=== PATIENT | male | born 1955 | race Caucasian/White ===

== ENCOUNTER 2016-11-25 00:30 | Inpatient (IN) | payer OTHER ==
[2016-11-25 02:31] LABS: MEAN CELL VOLUME 79.4 fL (80.0-94.0); MEAN PLATELET VOLUME 8.1 fL (7.2-11.7); MONO # 0.8 K/uL (0.0-0.8)
[2016-11-25 02:33] LABS: BASO % 0.3 % (0.0-2.0); HEMATOCRIT 34.3 % (35.0-51.0); LYMPH # 0.9 K/uL (1.0-4.3); MEAN CORPUSCULAR HGB CONC 31.5 g/dL (33.0-37.0); MONO % 5.7 % (0.0-10.0); PLATELET COUNT 220 K/uL (130-400); WHITE BLOOD COUNT 14.1 K/uL (4.8-10.8)
[2016-11-25] MEDS ORDERED: Sodium Chloride 0.9% 500 ML IV ONE ×2 (02:40→02:42)
[2016-11-25 02:45] LABS: RBC URINE < 1 /hpf (0-3); URINE BILIRUBIN NEGATIVE (NEGATIVE); URINE COLOR Yellow (YELLOW); URINE GLUCOSE (UA) NORMAL (Normal); URINE KETONE NEGATIVE (NEGATIVE); URINE LEUKOCYTE ESTERASE NEG Leu/uL (Negative); URINE PROTEIN 1+ mg/dL (NEGATIVE); URINE UROBILINOGEN NORMAL mg/dL (0.2-1.0); WBC URINE 5 /hpf (0-5)
[2016-11-25 02:45] LABS: POTASSIUM 3.6 mmol/L (3.6-5.2)
[2016-11-25 02:46] LABS: INR 1.3
[2016-11-25 02:47] LABS: ALB/GLOB RATIO 0.9 (1.0-2.1); BILIRUBIN,TOTAL 1.3 mg/dL (0.2-1.3); TOTAL PROTEIN 8.2 g/dL (6.3-8.3)
[2016-11-25 02:48] LABS: URINE BLOOD TRACE (NEGATIVE)
[2016-11-25 02:48] LABS: CALCIUM 8.3 mg/dl (8.6-10.4)
[2016-11-25 02:54] LABS: VENOUS BLOOD GAS BASE EXCESS 5.5 mmol/L (0.0-2.0); VENOUS BLOOD GAS PCO2 51 mmHg (40-60)
[2016-11-25 03:21] LABS: NEUTROPHIL 84 % (50-75); TOTAL CELLS COUNTED 100
[2016-11-25 03:22] LABS: LARGE PLATELETS PRESENT
[2016-11-25] MEDS ORDERED: Sodium Chloride 0.9% 1,000 ML IV ONE ×2 (03:52→06:38)
[2016-11-25] MEDS ORDERED: cefTRIAXone IV 1 gm in Dextros 50 ML IVPB STA (04:16)
[2016-11-25] MEDS ORDERED: cefTRIAXone IV 1 gm in Dextros 50 ML IVPB ONE (04:20)
--- NOTE | 2016-11-25 04:27 | C.PDOC ---
Time Seen by Provider: 11/25/16 02:45 Chief Complaint (Nursing): Fever History Per: Patient, EMS Onset/Duration Of Symptoms: Hrs Current Symptoms Are (Timing): Still Present Associated Symptoms: Fever, Other (Generalized weakness) Severity: Moderate Recent travel outside of the [place]: No Additional History Per: Prior Records Past Medical History Reviewed: Historical Data, Nursing Documentation, Vital Signs Vital Signs: Last Vital Signs Temp 101.7 F H 11/25/16 04:10 Pulse 83 11/25/16 04:10 Resp 20 11/25/16 04:10 BP 94/40 L 11/25/16 04:10 Pulse Ox 98 11/25/16 04:10 - Medical History PMH: Diabetes Family History: States: Unknown Family Hx - Social History Hx Alcohol Use: No Hx Substance Use: No - Immunization History Hx Tetanus Toxoid Vaccination: No Hx Influenza Vaccination: No Hx Pneumococcal Vaccination: No Review Of Systems Except As Marked, All Systems Reviewed And Found Negative. Constitutional: Positive for: Fever, Malaise ENT: Negative for: Nose Congestion, Throat Pain Cardiovascular: Negative for: Chest Pain Respiratory: Negative for: Cough, Shortness of Breath Gastrointestinal: Negative for: Vomiting, Abdominal Pain, Diarrhea Genitourinary: Negative for: Dysuria Musculoskeletal: Negative for: Neck Pain, Back Pain Skin: Positive for: Rash Neurological: Negative for: Weakness, Numbness, Seizures, Altered Mental Status , Headache Physical Exam - Physical Exam Appears: No Acute Distress, Chronically Ill Skin: Warm, Dry, Rash (on b/l legs) Head: Atraumatic, Normacephalic Eye(s): bilateral: PERRL, EOMI Neck: Normal ROM, Supple Cardiovascular: Rhythm Regular Respiratory: Normal Breath Sounds, No Accessory Muscle Use Gastrointestinal/Abdominal: Soft, No Tenderness Male Genital: No Testicular Tenderness, Scrotal Swelling (due to hernia?, pt states it is not bothering him and has been like this for years) Extremity: Normal ROM, Pedal Edema Neurological/Psych: Oriented x3, Normal Motor, Normal Sensation ED Course And Treatment - Laboratory Results Result Diagrams: 11/25/16 02:28 11/25/16 02:28 Lab Interpretation: Abnormal Interpretation Of Abnormal: Leukocytosis. Renal insufficiency. O2 Sat by Pulse Oximetry: 98 Pulse Ox Interpretation: Normal - Radiology CXR: Interpreted by Me, Viewed By Me CXR Interpretation: Yes: No Acute Disease Progress - Interventions Interventions:: Observation, Intravenous fluid, Oxygen - Medications Administered Oral: Acetaminophen Intravenous: Other (Abx) - Data Reviewed Data Reviewed: Lab, Diagnostic imaging, Old records - Patient Status Patient status: Partially improved - Continuity of Care Discussed patient case with:: Patient, ED Nurse, On-call PMD-pt unassigned - Patient Plan Patient Plan: Admission Disposition Discussed With : Cailin Olivares Comment: He accepted pt on hospitalist service. Doctor Will See Patient In The: Hospital Counseled Patient/Family Regarding: Studies Performed, Diagnosis - Disposition Disposition: HOSPITALIZED Disposition Time: 04:29 Condition: FAIR - Clinical Impression Clinical Impression: Fever, Bilateral cellulitis of lower leg
[2016-11-25] MEDS ORDERED: DiphenhydrAMINE 50 mg/ml Inj IVP STA (04:39)
[2016-11-25] MEDS ORDERED: DiphenhydrAMINE 50 mg/ml Inj ONE (04:40)
--- NOTE | 2016-11-25 04:48 | CP.PCM.HP ---
History of Present Illness - History of Present Illness History of Present Illness: CC: fever + b/l leg swelling/warmth HPI: 60 year old Male with PMHx LE cellulites, LE swelling (x1yr), DM - presents c/o fever + b/l leg swelling/warmth for the past 1.5 weeks. Patient reports this is his second episode of b/l cellulites due to severe LE swelling ( resulting in open wounds), over the past year. He states that last week, the swelling in his b/l extremities got so sever, that 2 wounds opened on each leg, draining clear fluid daily. Shortly after, the legs became more warm, red, and tender. He admits to visiting a clinic in [facility], where his PMD Dr. Renner wrapped the b/l legs to help control the swelling. Admits to fever, weakness, n/v, urinary frequency (1x per hour), LE swelling, leg pain at site of open wounds. Denies chills, diaphoresis, H/A, dizziness, chest pain, SOB, orthopnea, abdominal pain, nausea, d/c, dysuria, back pain, or any additional acute complaints. ED course: Tylenol 975; Motrin 600; NS 2L; Vanco 1Gm IVPB; Rocephin 1Gm IVPB PMHx: LE cellulites, LE swelling (x1yr), DM, Arthritis, Inguinal Hernia (x30 years) PSHx: denies Meds: Novolin 70/30 15u daily; Diclofenac BID Allergies: ciprofloxacin, Flagyl (itchy, SOB, feels like throat is closing) FamHx: unknown SocHx: homeless sleeping on streets x1yr. 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 PMD: Dr. Renner ([facility] clinic) Present on Admission - Present on Admission Any Indicators Present on Admission: No Review of Systems - Constitutional Constitutional: Fever, Weakness. absent: Chills - EENT Eyes: absent: Blind Spots, Blurred Vision, Change in Vision Ears: absent: Decreased Hearing, Ear Discharge, Ear Pain Nose/Mouth/Throat: absent: Nasal Congestion, Nasal Discharge - Cardiovascular Cardiovascular: Leg Edema. absent: Chest Pain, Dyspnea - Respiratory Respiratory: absent: Cough, Dyspnea, Hemoptysis - Gastrointestinal Gastrointestinal: Vomiting (yesterday). absent: Abdominal Pain, Belching, Bloating, Nausea - Genitourinary Genitourinary: Urinary Frequency - Musculoskeletal Musculoskeletal: Other (b/l leg pain at wound sites, ). absent: Numbness, Tingling - Integumentary Integumentary: Skin Ulcer, Swelling - Neurological Neurological: Weakness. absent: Dizziness, Numbness, Headaches - Psychiatric Psychiatric: absent: Anhedonia, Anxiety, Depression - Hematologic/Lymphatic Hematologic: absent: Easy Bleeding, Easy Bruising, Lymphadenopathy Past Patient History - Past Social History Smoking Status: Never Smoked - PSYCHIATRIC Hx Substance Use: No Meds Allergies/Adverse Reactions: Allergies Allergy/AdvReac Type Severity Reaction Status Date / Time ciprofloxacin [From Cipro] Allergy Verified 11/25/16 00:57 ciprofloxacin HCl Allergy Verified 11/25/16 00:57 [From Cipro] Physical Exam - Constitutional Appears: Toxic, No Acute Distress, Chronically Ill - Head Exam Head Exam: ATRAUMATIC, NORMAL INSPECTION - Eye Exam Eye Exam: EOMI Pupil Exam: NORMAL ACCOMODATION - ENT Exam ENT Exam: Mucous Membranes Moist - Respiratory Exam Respiratory Exam: Clear to Auscultation Bilateral, NORMAL BREATHING PATTERN. absent: Wheezes - Cardiovascular Exam Cardiovascular Exam: Tachycardia, +S1, +S2 - GI/Abdominal Exam GI & Abdominal Exam: Normal Bowel Sounds, Soft. absent: Tenderness - Extremities Exam Extremities exam: Positive for: pedal edema, tenderness, pedal pulses present. Negative for: normal inspection - Back Exam Back exam: NORMAL INSPECTION - Neurological Exam Neurological exam: Alert, CN II-XII Intact, Oriented x3 - Psychiatric Exam Psychiatric exam: Flat Affect, Normal Mood - Skin Skin Exam: Dry, Normal Color, Warm Additional comments: b/l legs warm, erythematous, open wounds present. Results - Vital Signs Recent Vital Signs: Last Vital Signs Temp 101.7 F H 11/25/16 04:10 Pulse 83 11/25/16 04:10 Resp 20 11/25/16 04:10 BP 94/40 L 11/25/16 04:10 Pulse Ox 98 11/25/16 04:30 - Labs Result Diagrams: 11/25/16 02:28 11/25/16 02:28 Labs: Laboratory Results - last 24 hr 11/25/16 11/25/16 11/25/16 02:22 02:28 02:49 WBC 14.1 H RBC 4.32 L Hgb 10.8 L Hct 34.3 L MCV 79.4 L MCH 25.0 L MCHC 31.5 L RDW 16.0 H Plt Count 220 MPV 8.1 Neut % (Auto) 88.0 H Lymph % (Auto) 6.0 L [place] % (Auto) 5.7 Eos % (Auto) 0.0 Baso % (Auto) 0.3 Neut # 12.4 H Lymph # 0.9 L [place] # 0.8 Eos # 0.0 Baso # 0.0 Neutrophils % (Manual) 84 H Band Neutrophils % 2 Lymphocytes % (Manual) 8 L Monocytes % (Manual) 6 Basophils % (Manual) TEST NOT PERFORMED Platelet Estimate Normal Large Platelets Present Poikilocytosis (manual Slight Anisocytosis (manual) Slight PT 14.8 H INR 1.3 APTT 27 pO2 18 L VBG pH 7.40 VBG pCO2 51 VBG HCO3 27.3 VBG Total CO2 33.2 H VBG O2 Sat (Calc) 24.0 L VBG Base Excess 5.5 H VBG Potassium 3.6 Glucose 140 H Lactate 1.4 Sodium 139 139.0 Potassium 3.6 Chloride 98 105.0 Carbon Dioxide 27 Anion Gap 17 BUN 26 H Creatinine 1.8 H Est GFR ( Amer) 47 Est GFR (Non-Af Amer) 39 Random Glucose 131 H Calcium 8.3 L Total Bilirubin 1.3 AST 48 ALT 32 Alkaline Phosphatase 61 Total Protein 8.2 Albumin 3.8 Globulin 4.4 H Albumin/Globulin Ratio 0.9 L Venous Blood Potassium 3.6 Urine Color Yellow Urine Clarity Clear Urine pH 5.0 Ur Specific [place] 1.011 Urine Protein 1+ H Urine Glucose (UA) Normal Urine Ketones Negative Urine Blood Trace H Urine Nitrate Negative Urine Bilirubin Negative Urine Urobilinogen Normal Ur Leukocyte Esterase Neg Urine WBC (Auto) 5 Urine RBC (Auto) < 1 Ur Squamous Epith Cells < 1 Influenza Typ A,B (EIA) 11/25/16 02:50 WBC RBC Hgb Hct MCV MCH MCHC RDW Plt Count MPV Neut % (Auto) Lymph % (Auto) [place] % (Auto) Eos % (Auto) Baso % (Auto) Neut # Lymph # [place] # Eos # Baso # Neutrophils % (Manual) Band Neutrophils % Lymphocytes % (Manual) Monocytes % (Manual) Basophils % (Manual) Platelet Estimate Large Platelets Poikilocytosis (manual Anisocytosis (manual) PT INR APTT pO2 VBG pH VBG pCO2 VBG HCO3 VBG Total CO2 VBG O2 Sat (Calc) VBG Base Excess VBG Potassium Glucose Lactate Sodium Potassium Chloride Carbon Dioxide Anion Gap BUN Creatinine Est GFR ( Amer) Est GFR (Non-Af Amer) Random Glucose Calcium Total Bilirubin AST ALT Alkaline Phosphatase Total Protein Albumin Globulin Albumin/Globulin Ratio Venous Blood Potassium Urine Color Urine Clarity Urine pH Ur Specific [place] Urine Protein Urine Glucose (UA) Urine Ketones Urine Blood Urine Nitrate Urine Bilirubin Urine Urobilinogen Ur Leukocyte Esterase Urine WBC (Auto) Urine RBC (Auto) Ur Squamous Epith Cells Influenza Typ A,B (EIA) Negative for flu a/b Assessment & Plan - Assessment and Plan (Free Text) Assessment: Bilateral cellulitis of lower extremities - chronic redness/swelling in b/l legs (x1yrs) - likely b/l swelling due to venous insufficiency - possible bacteremia due to open wounds Leukocytosis - WBC 14k Fever, T104.7 -> 101.7 NS0.9 at 100cc/hr Tylenol 650mg PO Q6 PRN Ceftriaxone 1Gm IVPB daily Vancomycin 1Gm IVPB qDaily f/u Blood Culture f/u am labs Leukocytosis WBC 14k influenza a/b negative UA negative Diabetes ISS low dose Novlolin 70/30 8u SC BIDAC f/u A1c Renal Insufficiency BUN 26 / Cr 1.8 on admission NS0.9 at 100cc/hr Avoid home med - Diclofenac monitor Inguinal hernia - severe scrotal swelling, non-tender, non-reducible - f/u CT chest/abd/pelvis Sleep Apnea recommend outpatient sleep apnea testing -pt homeless, but possibly his [facility] clinic can refer him Hypotension BP 94/40 on admission NS 0.9 at 100cc/hr Electrolyte Imbalance Hypokalemia, K3.6 - Kdur 20 monitor Prophylaxis Contraindication to SCDs (LE edema) Pepcid 20mg PO daily Heparin SC Q8 Heart healthy diet, low sodium, carb consistent, Renal (non dialysis) - Date & Time Date: 11/25/16 Time: 04:45
[2016-11-25] MEDS ORDERED: Bacitracin 500 Units/gm Oint Foilpak UD ONE (04:53)
[2016-11-25] MEDS: (Novolog) Insulin Aspart, Recombinant 100 u/ml 10 ml vial SC SCH ×4 (07:50→21:09)
[2016-11-25] MEDS: (Novolin 70/30) NPH/Regular 70/30 Units/ml 10 ml vial SC SCH ×2 (07:50→17:30)
[2016-11-25] MEDS: Sodium Chloride 0.9% 1,000 ML IV SCH ×3 (09:51→21:25)
[2016-11-25] MEDS: Potassium Chloride 20 mEq ER Tab PO SCH (09:57)
[2016-11-25 11:56] LABS: BASO # 0.1 K/uL (0.0-0.2); BASO % 0.4 % (0.0-2.0); EOS % 0.1 % (0.0-4.0); HEMATOCRIT 31.3 % (35.0-51.0); LYMPH # 0.7 K/uL (1.0-4.3); LYMPH % 4.5 % (20.0-40.0); MEAN CELL VOLUME 79.4 fL (80.0-94.0); MEAN CORPUSCULAR HGB CONC 31.4 g/dL (33.0-37.0); MONO # 0.9 K/uL (0.0-0.8); MONO % 6.1 % (0.0-10.0); PLATELET COUNT 186 K/uL (130-400); RED CELL DISTRIBUTION WIDTH 15.9 % (11.5-14.5); WHITE BLOOD COUNT 14.4 K/uL (4.8-10.8)
--- NOTE | 2016-11-25 12:14 | CT ---
PROCEDURE: CT Chest, Abdomen and Pelvis without intravenous contrast HISTORY: Scrotal swelling, fever COMPARISON: None. TECHNIQUE: Radiation dose: Total exam DLP = 2157.19 mGy-cm. FINDINGS: CT CHEST WITHOUT CONTRAST: LUNGS: No consolidation. Several bilateral pulmonary nodules are noted. Calcified granuloma anterior right upper lobe, series 4, image 45. 5 mm noncalcified nodule right upper lobe, image 52. 6 mm ground-glass nodule apical posterior left upper lobe, subpleural, image 48. Subpleural 6 mm ground-glass nodule, left upper lobe, apical posterior, image 61. 5 mm subpleural nodule, left lower lobe, image 63. Given the presence of multiple ground-glass nodules, largest 6 mm, followup CT at 3-6 months is advised. MEDIASTINUM: Unremarkable. Normal caliber aorta and pulmonary arterial trunk. Normal size heart. LYMPH NODES: Unremarkable. PLEURA: Unremarkable. No pneumothorax. No pleural fluid. BONES: Unremarkable. OTHER FINDINGS: Mild bilateral gynecomastia. CT ABDOMEN AND PELVIS: LIVER: Normal size and contour. Diffusely diminished attenuation consistent with fatty infiltration. No mass. No biliary ductal dilatation. GALLBLADDER AND BILE DUCTS: Unremarkable. PANCREAS: Unremarkable. No gross lesion or ductal dilatation. SPLEEN: Splenomegaly. The spleen measures 17.8 cm in greatest dimension. No focal mass. ADRENALS: Unremarkable. No mass. KIDNEYS AND URETERS: No hydronephrosis. Punctate medullary calcifications bilaterally. No mass. VASCULATURE: Unremarkable. No aortic aneurysm. BOWEL: Right inguinal hernia containing a loop of small bowel. This does not appear obstructed though there is mild dilatation of the small bowel within the hernia sac. No other abnormal bowel loops are identified. APPENDIX: Not identified. No secondary findings to suggest acute appendicitis. PERITONEUM: No ascites. LYMPH NODES: Retroperitoneal and pelvic lymphadenopathy. Enlarged external iliac nodes up to 5 mm. Bilateral inguinal lymphadenopathy. Please note that there is stranding about the left pelvic and acts internal iliac and inguinal nodes suggestive of acute inflammation. Uncertain significance. BLADDER: Mild bilateral gynecomastia. Unremarkable. REPRODUCTIVE: Normal prostate BONES: No fracture. Grade 1 anterolisthesis at L4-5 without spondylolysis. OTHER FINDINGS: None. IMPRESSION: Multiple pulmonary nodules, some ground-glass. Largest ground-glass nodule 6 mm. Followup noncontrast chest CT 3 months is advised as per Fleischner society criteria. Mild bilateral gynecomastia. Splenomegaly. Right inguinal hernia containing nonobstructed loop of small bowel. Retroperitoneal, pelvic and inguinal lymphadenopathy. Left-sided external iliac and inguinal nodes appear acutely inflamed with surrounding stranding of the adjacent fat. Uncertain significance. Bilateral punctate medullary renal calcifications suggesting possible medullary sponge kidney. Please correlate. Diffuse fatty infiltration of the liver.
[2016-11-25 12:17] LABS: POTASSIUM 3.3 mmol/L (3.6-5.2)
[2016-11-25 12:18] LABS: CALCIUM 7.2 mg/dl (8.6-10.4)
[2016-11-25 12:19] LABS: ALB/GLOB RATIO 0.9 (1.0-2.1); BILIRUBIN,TOTAL 1.1 mg/dL (0.2-1.3); MAGNESIUM 1.8 mg/dL (1.6-2.3); TOTAL PROTEIN 6.9 g/dL (6.3-8.3)
[2016-11-25 12:31] LABS: NEUTROPHIL 77 % (50-75); TOTAL CELLS COUNTED 100
[2016-11-25 12:33] LABS: LARGE PLATELETS PRESENT
[2016-11-25 12:41] LABS: PHOSPHOROUS 3.7 mg/dL (2.5-4.5)
[2016-11-25 13:12] LABS: THYROID STIMULATING HORMONE 1.09 mIU/L (0.46-4.68)
--- NOTE | 2016-11-25 15:22 | RAD ---
HISTORY: pain COMPARISON: No prior. FINDINGS: LUNGS: No active pulmonary disease. PLEURA: No significant pleural effusion identified, no pneumothorax apparent. CARDIOVASCULAR: Normal. OSSEOUS STRUCTURES: No significant abnormalities. VISUALIZED UPPER ABDOMEN: Normal. OTHER FINDINGS: None. IMPRESSION: No active disease.
[2016-11-26] MEDS: Sodium Chloride 0.9% 1,000 ML IV SCH ×5 (05:36→23:46)
[2016-11-26] MEDS: (Novolog) Insulin Aspart, Recombinant 100 u/ml 10 ml vial SC SCH ×4 (07:33→21:04)
[2016-11-26] MEDS: (Novolin 70/30) NPH/Regular 70/30 Units/ml 10 ml vial SC SCH ×2 (08:19→16:26)
[2016-11-26] MEDS: Potassium Chloride 20 mEq ER Tab PO SCH (09:23)
[2016-11-26 10:39] LABS: BASO % 0.3 % (0.0-2.0); EOS # 0.1 K/uL (0.0-0.7); EOS % 1.2 % (0.0-4.0); HEMATOCRIT 31.1 % (35.0-51.0); LYMPH # 0.9 K/uL (1.0-4.3); LYMPH % 8.7 % (20.0-40.0); MEAN CELL VOLUME 79.5 fL (80.0-94.0); MEAN CORPUSCULAR HEMOGLOBIN 25.7 pg (27.0-31.0); MEAN CORPUSCULAR HGB CONC 32.3 g/dL (33.0-37.0); MONO # 0.7 K/uL (0.0-0.8); MONO % 7.1 % (0.0-10.0); PLATELET COUNT 168 K/uL (130-400); RED CELL DISTRIBUTION WIDTH 16.1 % (11.5-14.5)
[2016-11-26 10:48] LABS: POTASSIUM 3.2 mmol/L (3.6-5.2)
[2016-11-26 10:51] LABS: ALB/GLOB RATIO 0.9 (1.0-2.1); BILIRUBIN,TOTAL 0.7 mg/dL (0.2-1.3)
[2016-11-26 10:52] LABS: CALCIUM 7.5 mg/dl (8.6-10.4)
[2016-11-26 11:04] LABS: NEUTROPHIL 75 % (50-75); TOTAL CELLS COUNTED 100
[2016-11-26 11:05] LABS: LARGE PLATELETS PRESENT
[2016-11-26] MEDS ORDERED: Potassium Chloride 20 mEq ER Tab PO STA (11:28)
[2016-11-26 11:45] LABS: MAGNESIUM 2.1 mg/dL (1.6-2.3)
--- NOTE | 2016-11-26 14:16 | CP.PCM.PN ---
Subjective - Date & Time of Evaluation Date of Evaluation: 11/26/16 Time of Evaluation: 14:04 - Subjective Subjective: PGY-1 note for medicine service Pt seen and examined at bedside. Pt in good spirits today. He reports some discomfort in his b/l LE. Denies any fevers, chills, chest pain, sob, nausea or vomiting. Objective - Vital Signs/Intake and Output Vital Signs (last 24 hours): Temp Pulse Resp BP Pulse Ox 100.1 F H 87 20 130/71 94 L 11/26/16 07:58 11/26/16 08:00 11/26/16 07:58 11/26/16 07:58 11/26/16 07:58 Intake and Output: 11/26/16 11/26/16 06:59 18:59 Intake Total 1500 1320 Output Total 700 Balance 800 1320 - Medications Medications: Current Medications Acetaminophen (Tylenol 325mg Tab) 650 mg PO Q6 PRN PRN Reason: Fever >100.4 F Last Admin: 11/26/16 00:12 Dose: 650 mg Famotidine (Pepcid) 20 mg PO DAILY [facility] Last Admin: 11/26/16 09:23 Dose: 20 mg Heparin Sodium (Porcine) (Heparin) 5,000 units SC Q8 [facility] Last Admin: 11/26/16 13:55 Dose: 5,000 units Sodium Chloride (Sodium Chloride 0.9%) 1,000 mls @ 100 mls/hr IV .Q10H [facility] Last Admin: 11/26/16 13:48 Dose: Not Given Vancomycin HCl 1 gm/ Sodium (Chloride) 250 mls @ 166.7 mls/hr IVPB Q24H [facility] Last Admin: 11/26/16 05:34 Dose: 166.7 mls/hr Ceftriaxone Sodium 1 gm/ (Sodium Chloride) 100 mls @ 100 mls/hr IVPB Q24H [facility] Last Admin: 11/26/16 04:30 Dose: 100 mls/hr Insulin Aspart (Novolog) 0 unit SC ACHS [facility]ARAT PRN Reason: Protocol Last Admin: 11/26/16 12:06 Dose: Not Given Insulin Human Isoph/Insulin Regular (Novolin 70/30 (70/30 Units/Ml) 10 Ml) 8 units SC BIDAC [facility] Last Admin: 11/26/16 08:19 Dose: 8 units Potassium Chloride (K-Dur 20 Meq Er Tab) 20 meq PO DAILY [facility]ARAT Last Admin: 11/26/16 09:23 Dose: 20 meq - Labs Labs: 11/26/16 10:31 11/26/16 10:31 PT 14.8 SECONDS (9.7-12.2) H 11/25/16 02:28 INR 1.3 11/25/16 02:28 APTT 27 SECONDS (21-34) 11/25/16 02:28 - Constitutional Appears: Non-toxic, No Acute Distress - Head Exam Head Exam: ATRAUMATIC, NORMOCEPHALIC - Eye Exam Eye Exam: Normal appearance - ENT Exam ENT Exam: Mucous Membranes Moist - Respiratory Exam Respiratory Exam: Clear to Ausculation Bilateral, NORMAL BREATHING PATTERN - Cardiovascular Exam Cardiovascular Exam: +S1, +S2 - GI/Abdominal Exam GI & Abdominal Exam: Soft, Normal Bowel Sounds - Extremities Exam Extremities Exam: Pedal Edema Additional comments: Swelling, erythema, chronic venous stasis changes, ulcers - Neurological Exam Neurological Exam: Alert, Awake - Skin Skin Exam: Dry, Warm Assessment and Plan - Assessment and Plan (Free Text) Assessment: Bilateral cellulitis of lower extremities - chronic redness/swelling in b/l legs (x1yrs) - likely b/l swelling due to venous insufficiency - possible bacteremia due to open wounds - Leukocytosis - resolved - Fever, T104.7 -> 101.1 - NS 0.9 at 100cc/hr - Tylenol 650mg PO Q6 PRN - Ceftriaxone 1Gm IVPB daily - Vancomycin 1Gm IVPB qDaily - B/L LE US - f/u - f/u Cx's - Vanc trough with AM labs Leukocytosis - resolved - influenza a/b negative - UA negative Diabetes - ISS low dose - Novlolin 70/30 8u SC BIDAC - f/u A1c - sunday Renal Insufficiency - BUN 26 / Cr 1.8 on admission - NS 0.9 at 100cc/hr - Avoid home med - Diclofenac - B/L renal US - f/u - Random Creatinine and Protein - f/u - monitor Inguinal hernia - severe scrotal swelling, non-tender, non-reducible - f/u CT chest/abd/pelvis 11/25/ - no obstructions Sleep Apnea - recommend outpatient sleep apnea testing - pt homeless, but possibly his [facility] clinic can refer him Hypotension - resolved - cont NS 0.9 at 100cc/hr - monitor Electrolyte Imbalance - Hypokalemia, repleted - monitor and adjust as needed Prophylaxis - Contraindication to SCDs (LE edema) - Pepcid 20mg PO daily - Heparin SC Q8 - Heart healthy diet, low sodium, carb consistent, Renal (non dialysis)
--- NOTE | 2016-11-26 16:17 | US ---
PROCEDURE: Ultrasound of the Kidneys HISTORY: proteinuria COMPARISON: None available. TECHNIQUE: Sonogram of the kidneys. FINDINGS: RIGHT KIDNEY: Measures: 10.9 cm. Normal in size, contour and echogenicity. No mass or hydronephrosis. Punctate medullary calcifications as on CT examination of prior date. LEFT KIDNEY: Measures: 10.8 cm. Normal in size, contour and echogenicity. No hydronephrosis. Two upper pole cortical cysts, 1.2 x 1.4 x 1.5 cm and 0.8 x 0.9 x 1.1 cm. . Punctate medullary calcifications as on CT examination of prior date. OTHER FINDINGS: None. IMPRESSION: Bilateral punctate medullary calcifications suggestive of medullary sponge kidney. To left renal cortical cysts. Otherwise unremarkable.
[2016-11-26] MEDS: guaiFENesin 100 mg/5 ml Syrup UD PO PRN (18:43)
[2016-11-26 22:05] LABS: CREATININE, RANDOM URINE 61.2 mg/dL
[2016-11-27] MEDS: guaiFENesin 100 mg/5 ml Syrup UD PO PRN ×2 (05:44→19:19)
[2016-11-27 07:18] LABS: BASO % 0.4 % (0.0-2.0); EOS # 0.2 K/uL (0.0-0.7); EOS % 1.8 % (0.0-4.0); HEMATOCRIT 30.2 % (35.0-51.0); LYMPH % 11.5 % (20.0-40.0); MEAN CELL VOLUME 78.8 fL (80.0-94.0); MEAN PLATELET VOLUME 8.3 fL (7.2-11.7); MONO # 0.7 K/uL (0.0-0.8); MONO % 7.3 % (0.0-10.0); RED CELL DISTRIBUTION WIDTH 15.7 % (11.5-14.5); WHITE BLOOD COUNT 8.9 K/uL (4.8-10.8)
[2016-11-27 07:21] LABS: CHLORIDE 100 mmol/L (98-107)
[2016-11-27 07:22] LABS: POTASSIUM 3.4 mmol/L (3.6-5.2); SODIUM 139 mmol/L (132-148)
[2016-11-27 07:24] LABS: ALB/GLOB RATIO 0.8 (1.0-2.1); AST/SGOT 42 U/L (17-59); BILIRUBIN,TOTAL 0.8 mg/dL (0.2-1.3); BLOOD UREA NITROGEN 20 mg/dL (9-20); CARBON DIOXIDE 30 mmol/L (22-30); GFR AFRICAN-AMERICAN 47; TOTAL PROTEIN 7.2 g/dL (6.3-8.3)
[2016-11-27 07:25] LABS: ALKALINE PHOSPHATASE 59 U/L (38-126); ALT/SGPT 35 U/L (21-72); CALCIUM 7.7 mg/dl (8.6-10.4); GLUCOSE,RANDOM 105 mg/dL (75-110)
[2016-11-27] MEDS: (Novolog) Insulin Aspart, Recombinant 100 u/ml 10 ml vial SC SCH ×4 (07:59→21:46)
[2016-11-27] MEDS: (Novolin 70/30) NPH/Regular 70/30 Units/ml 10 ml vial SC SCH ×2 (08:05→17:23)
[2016-11-27] MEDS: Potassium Chloride 20 mEq ER Tab PO SCH (09:24)
[2016-11-27] MEDS: Sodium Chloride 0.9% 1,000 ML IV SCH ×2 (09:27→18:15)
[2016-11-27] MEDS ORDERED: Potassium Chloride 20 mEq ER Tab PO ONE (09:42)
--- NOTE | 2016-11-27 09:55 | CP.PCM.PN ---
<Coleman Alvarez - Last Filed: 11/27/16 21:12> Subjective - Date & Time of Evaluation Date of Evaluation: 11/27/16 Time of Evaluation: 07:00 - Subjective Subjective: PGY-1 note for medicine service Pt seen and examined at bedside. Pt continues to be in good spirits. Reports mild SOB today while laying flat, encouraged to maintain his bed slightly elevated at 30 degrees. He denies discomfort in his b/l LE today. Denies any fevers, chills, chest pain, abdominal pain, nausea / vomiting, or any additional complaints. Objective - Vital Signs/Intake and Output Vital Signs (last 24 hours): Temp Pulse Resp BP Pulse Ox 97.1 F L 81 20 149/79 95 11/27/16 07:25 11/27/16 07:25 11/27/16 07:25 11/27/16 07:25 11/27/16 07:25 Intake and Output: 11/27/16 11/27/16 06:59 18:59 Intake Total 1100 Output Total 700 Balance 400 - Medications Medications: Current Medications Acetaminophen (Tylenol 325mg Tab) 650 mg PO Q6 PRN PRN Reason: Fever >100.4 F Last Admin: 11/26/16 16:26 Dose: 650 mg Famotidine (Pepcid) 20 mg PO DAILY [facility] Last Admin: 11/27/16 09:24 Dose: 20 mg Guaifenesin (Robitussin) 100 mg PO Q4H PRN PRN Reason: Cough Last Admin: 11/27/16 05:44 Dose: 100 mg Heparin Sodium (Porcine) (Heparin) 5,000 units SC Q8 [facility] Last Admin: 11/27/16 05:42 Dose: 5,000 units Sodium Chloride (Sodium Chloride 0.9%) 1,000 mls @ 100 mls/hr IV .Q10H [facility] Last Admin: 11/27/16 09:27 Dose: Not Given Vancomycin HCl 1 gm/ Sodium (Chloride) 250 mls @ 166.7 mls/hr IVPB Q24H [facility] Last Admin: 11/26/16 05:34 Dose: 166.7 mls/hr Ceftriaxone Sodium 1 gm/ (Sodium Chloride) 100 mls @ 100 mls/hr IVPB Q24H [facility] Last Admin: 11/27/16 04:08 Dose: 100 mls/hr Insulin Aspart (Novolog) 0 unit SC ACHS [facility] PRN Reason: Protocol Last Admin: 11/27/16 07:59 Dose: Not Given Insulin Human Isoph/Insulin Regular (Novolin 70/30 (70/30 Units/Ml) 10 Ml) 8 units SC BIDAC [facility] Last Admin: 11/27/16 08:05 Dose: 8 units Potassium Chloride (K-Dur 20 Meq Er Tab) 20 meq PO DAILY [facility] Last Admin: 11/27/16 09:24 Dose: 20 meq - Labs Labs: 11/27/16 06:00 11/27/16 06:00 PT 14.8 SECONDS (9.7-12.2) H 11/25/16 02:28 INR 1.3 11/25/16 02:28 APTT 27 SECONDS (21-34) 11/25/16 02:28 - Additional Findings Additional findings: - Constitutional Appears: Non-toxic, No Acute Distress - Head Exam Head Exam: ATRAUMATIC, NORMOCEPHALIC - Eye Exam Eye Exam: Normal appearance - ENT Exam ENT Exam: Mucous Membranes Moist - Respiratory Exam Respiratory Exam: Clear to Ausculation Bilateral, NORMAL BREATHING PATTERN - Cardiovascular Exam Cardiovascular Exam: +S1, +S2 - GI/Abdominal Exam GI & Abdominal Exam: Soft, Normal Bowel Sounds - Extremities Exam Extremities Exam: Pedal Edema Additional comments: Swelling, erythema, chronic venous stasis changes, ulcers - Neurological Exam Neurological Exam: Alert, Awake - Skin Skin Exam: Dry, Warm Assessment and Plan - Assessment and Plan (Free Text) Assessment: Bilateral cellulitis of lower extremities 11/28: f/u vanco trough in AM 11/27: mild temp overnight, 100.2F; vanco trough 6.8 L -> inc to Vanco 750mg IVPB BID. 11/27: Echo - EF 60%; overall normal. see full report. - chronic redness/swelling in b/l legs (x1yrs) - likely b/l swelling due to venous insufficiency - possible bacteremia due to open wounds - Leukocytosis - resolved - Fever, T104.7 -> 101.1 - NS 0.9 at 100cc/hr - Tylenol 650mg PO Q6 PRN - Ceftriaxone 1Gm IVPB daily - Vancomycin 1Gm IVPB qDaily - B/L LE US - f/u Leukocytosis - Resolved - f/u repeat BC - influenza a/b negative - UA negative - blood culture negative x2d Anemia 11/27: Hgb 10; f/u labs ferritin TIBC Fe %Sat Diabetes - ISS low dose - Novlolin 70/30 8u SC BIDAC - f/u A1c 7.1 Renal Insufficiency 11/27: B/L renal US - bilat punctate medullary calcification - medullary sponge kidney. 2 left renal cortical cysts. see report. - BUN 26 / Cr 1.8 on admission - NS 0.9 at 100cc/hr - Avoid home med - Diclofenac - Random Creatinine and Protein - f/u - monitor Inguinal hernia - severe scrotal swelling, non-tender, non-reducible - f/u CT chest/abd/pelvis 11/25/ - no obstructions Sleep Apnea - recommend outpatient sleep apnea testing - pt homeless, but possibly his [facility] clinic can refer him Hypotension - resolved - cont NS 0.9 at 100cc/hr - monitor Electrolyte Imbalance - Hypokalemia, repleted - monitor and adjust as needed Prophylaxis - Contraindication to SCDs (LE edema) - Pepcid 20mg PO daily - Heparin SC Q8 - Heart healthy diet, low sodium, carb consistent, Renal (non dialysis) <[place] - Last Filed: 11/28/16 09:50> Objective - Vital Signs/Intake and Output Vital Signs (last 24 hours): Temp Pulse Resp BP Pulse Ox 98.8 F 75 18 147/72 96 11/28/16 08:05 11/28/16 08:05 11/28/16 08:05 11/28/16 08:05 11/28/16 08:05 Intake and Output: 11/28/16 11/28/16 06:59 18:59 Intake Total 2170 Output Total 800 Balance 1370 - Medications Medications: Current Medications Acetaminophen (Tylenol 325mg Tab) 650 mg PO Q6 PRN PRN Reason: Fever >100.4 F Last Admin: 11/26/16 16:26 Dose: 650 mg Famotidine (Pepcid) 20 mg PO DAILY [facility] Last Admin: 11/27/16 09:24 Dose: 20 mg Guaifenesin (Robitussin) 100 mg PO Q4H PRN PRN Reason: Cough Last Admin: 11/27/16 19:19 Dose: 100 mg Ceftriaxone Sodium 1 gm/ (Sodium Chloride) 100 mls @ 100 mls/hr IVPB Q24H [facility] Last Admin: 11/28/16 04:08 Dose: 100 mls/hr Vancomycin HCl 750 mg/ Sodium (Chloride) 250 mls @ 166.6 mls/hr IVPB Q12H [facility] Last Admin: 11/27/16 21:39 Dose: 166.6 mls/hr Insulin Aspart (Novolog) 0 unit SC ACHS [facility] PRN Reason: Protocol Last Admin: 11/27/16 21:46 Dose: Not Given Insulin Human Isoph/Insulin Regular (Novolin 70/30 (70/30 Units/Ml) 10 Ml) 8 units SC BIDAC [facility] Last Admin: 11/27/16 17:23 Dose: 8 units Potassium Chloride (K-Dur 20 Meq Er Tab) 20 meq PO DAILY [facility] Last Admin: 11/27/16 09:24 Dose: 20 meq Potassium Chloride (K-Dur 20 Meq Er Tab) 20 meq PO DAILY [facility] - Labs Labs: 11/28/16 06:02 11/28/16 06:02 PT 14.8 SECONDS (9.7-12.2) H 11/25/16 02:28 INR 1.3 11/25/16 02:28 APTT 27 SECONDS (21-34) 11/25/16 02:28 Attending/Attestation - Attestation I have personally seen and examined this patient.: Yes I have fully participated in the care of the patient.: Yes I have reviewed all pertinent clinical information, including history, physical exam and plan: Yes Notes (Text): Patient with obesity, DM, admitted with bilateral LE cellulitis, high fever; Patient afebrile until last night with low grade temp; blood cultures negative thus far, repeating cultures today; on vanco and ceftriaxone, vanco trough low with just once daily dosing (due to advanced CKD), being redosed at 750 g q12h; CKD III, stable; renal US again showing medullary calcifications; awaiting urine random protein/creatinine; may benefit from PAULINA blockade if elevated; DM adequately controlled (A1C 7.1), continue 70/30 insulin 8 u bidac; Shortness of breath on walking 3 blocks; echo unremarkable; needs workup for DARRYL /sleep apnea as outpatient; Edematous legs in setting of cellulitis; otherwise venous duplex not showing thrombosis or valvular reflux; Dispo: If fever subside, can likely discharge on PO abx for both MRSA and strep coverage.
--- NOTE | 2016-11-27 16:00 | CARD ---
APPROVED REPORT EXAM: Two-dimensional and M-mode echocardiogram with Doppler and color Doppler. Other Information Quality : GoodRhythm : INDICATION Peripheral Edema Congestive Heart Failure FEVER RISK FACTORS Obesity M-Mode DIMENSIONS RVDd1.60 (2.1-3.2cm)Left Atrium (MM)4.14 (2.5-4.0cm) IVSd0.98 (0.7-1.1cm)Aortic Root3.16 (2.2-3.7cm) LVDd5.51 (4.0-5.6cm)Aortic Cusp Exc.2.19 (1.5-2.0cm) PWd1.25 (0.7-1.1cm)FS (%) 35 % LVDs3.55 (2.0-3.8cm)LVEF (%)64 (>50%) Aortic Valve AoV Peak Tautosza931.6cm/[place] Peak GR.16mmHg Mitral Valve MV E Hwueofuz18.6cm/sMV A Bhcdltus69.1cm/sE/A ratio1.0 TDI E/Lateral E'0.0E/Medial E'0.0 Tricuspid Valve TR Peak [id number]/sTR Peak Gr.[id number] <Conclusion> poor window. tds. overall normal size lv,ra & rv. normal lv wall motion,thickness & systolic funciton with lvef of 60%. normal mitral inflow velocity. aortic valve not well seen but probably normal. mitral & tv appears normal. pv not seen well. aortic root is normal size., no pericardial effusion. clinical correaltion is adv.
--- NOTE | 2016-11-27 16:45 | VASCLAB ---
PROCEDURE: Lower Extremity Venous Duplex Exam. HISTORY: b/l leg edema, r/o DVT PRIORS: None. TECHNIQUE: Bilateral common femoral, femoral, popliteal and posterior tibial, peroneal and great saphenous veins were evaluated. Flow was assessed with color Doppler, compressibility, assessment of phasic flow and augmentation response. Report prepared by Daniel Farr, ROSALIO, RVT FINDINGS: RIGHT: 1. Common Femoral Vein: 1.1. Compressibility - Fully compressible: Thrombus - None : Flow - Phasic: Augmentation -Normal: Reflux - None. 2. Femoral Vein: 2.1. Compressibility - Fully compressible in the proximal and middle aspect. The distal segment is suboptimally seen.: Thrombus - None : Flow - Phasic: Augmentation -Normal: Reflux - None. 3. Popliteal Vein: 3.1. Compressibility - Fully compressible: Thrombus - None : Flow - Phasic: Augmentation -Normal: Reflux - None. 4. Posterior Tibial Vein: 4.1. Compressibility - Fully compressible: Thrombus - None: Flow - Phasic: Augmentation -Normal: Reflux - None. 5. Peroneal Vein: 5.1. Compressibility - Fully compressible: Thrombus - None: Flow - Phasic: Augmentation -Normal: Reflux - None. 6. Great Saphenous Vein: 6.1. Compressibility - Fully compressible: Thrombus - None: Flow - Phasic: Augmentation - Normal: Reflux - None. LEFT: 1. Common Femoral Vein: 1.1. Compressibility - Fully compressible: Thrombus - None: Flow - Phasic: Augmentation -Normal: Reflux - None. 2. Femoral Vein: 2.1. Compressibility - Fully compressible: Thrombus - None: Flow - Phasic: Augmentation -Normal: Reflux - None. 3. Popliteal Vein: 3.1. Compressibility - Fully compressible: Thrombus - None : Flow - Phasic: Augmentation -Normal: Reflux - None. 4. Posterior Tibial Vein: 4.1. Compressibility - Fully compressible: Thrombus - None: Flow - Phasic: Augmentation -Normal: Reflux - None. 5. Peroneal Vein: 5.1. Compressibility - Fully compressible: Thrombus - None: Flow - Phasic: Augmentation -Normal: Reflux - None. 6. Great Saphenous Vein: 6.1. Compressibility - Fully compressible: Thrombus - None: Flow - Phasic: Augmentation - Normal: Reflux - None. OTHER FINDINGS: Right: None significant. Left: None significant. IMPRESSION: Right: No evidence of deep or superficial vein thrombosis of the right lower extremity. Normal valve function noted of the right side. Distal segment of the right superficial femoral vein is suboptimally seen. Left: No evidence of deep or superficial vein thrombosis of the left lower extremity. Normal valve function noted of the left side.
[2016-11-28] MEDS: Sodium Chloride 0.9% 1,000 ML IV SCH ×2 (01:49→06:43)
[2016-11-28 06:17] LABS: BASO % 0.5 % (0.0-2.0); EOS # 0.3 K/uL (0.0-0.7); EOS % 4.5 % (0.0-4.0); HEMATOCRIT 31.6 % (35.0-51.0); LYMPH % 13.1 % (20.0-40.0); MEAN CELL VOLUME 79.2 fL (80.0-94.0); MEAN CORPUSCULAR HEMOGLOBIN 25.9 pg (27.0-31.0); MEAN CORPUSCULAR HGB CONC 32.7 g/dL (33.0-37.0); MEAN PLATELET VOLUME 8.2 fL (7.2-11.7); MONO # 0.5 K/uL (0.0-0.8); MONO % 6.7 % (0.0-10.0); WHITE BLOOD COUNT 7.3 K/uL (4.8-10.8)
[2016-11-28 06:28] LABS: POTASSIUM 3.6 mmol/L (3.6-5.2)
[2016-11-28 06:30] LABS: ALB/GLOB RATIO 0.9 (1.0-2.1); BILIRUBIN,TOTAL 0.9 mg/dL (0.2-1.3); TOTAL PROTEIN 7.4 g/dL (6.3-8.3)
[2016-11-28 06:31] LABS: CALCIUM 7.7 mg/dl (8.6-10.4); MAGNESIUM 2.1 mg/dL (1.6-2.3); PHOSPHOROUS 2.4 mg/dL (2.5-4.5)
--- NOTE | 2016-11-28 07:46 | CP.PCM.PN ---
<Coleman Alvarez - Last Filed: 11/28/16 20:13> Subjective - Date & Time of Evaluation Date of Evaluation: 11/28/16 Time of Evaluation: 07:25 - Subjective Subjective: PGY-1 note for medicine service Pt seen and examined at bedside, chart reviewed and case discussed. He continues to be in good spirits. Today he reports that his SOB is improved and that his pain from his b/l LE is improved as well. He has been pushing himself to ambulate in the halls but still feels a bit uneasy about how far he can go. Denies fevers, chills, chest pain, abdominal pain, nausea, vomiting or any additional complaints. Objective - Vital Signs/Intake and Output Vital Signs (last 24 hours): Temp Pulse Resp BP Pulse Ox 98.3 F 72 20 130/74 96 11/27/16 23:10 11/27/16 23:10 11/27/16 23:10 11/27/16 23:10 11/27/16 23:10 Intake and Output: 11/28/16 11/28/16 06:59 18:59 Intake Total 2170 Output Total 800 Balance 1370 - Medications Medications: Current Medications Acetaminophen (Tylenol 325mg Tab) 650 mg PO Q6 PRN PRN Reason: Fever >100.4 F Last Admin: 11/26/16 16:26 Dose: 650 mg Famotidine (Pepcid) 20 mg PO DAILY [facility] Last Admin: 11/27/16 09:24 Dose: 20 mg Guaifenesin (Robitussin) 100 mg PO Q4H PRN PRN Reason: Cough Last Admin: 11/27/16 19:19 Dose: 100 mg Ceftriaxone Sodium 1 gm/ (Sodium Chloride) 100 mls @ 100 mls/hr IVPB Q24H [facility] Last Admin: 11/28/16 04:08 Dose: 100 mls/hr Vancomycin HCl 750 mg/ Sodium (Chloride) 250 mls @ 166.6 mls/hr IVPB Q12H [facility] Last Admin: 11/27/16 21:39 Dose: 166.6 mls/hr Insulin Aspart (Novolog) 0 unit SC ACHS [facility] PRN Reason: Protocol Last Admin: 11/27/16 21:46 Dose: Not Given Insulin Human Isoph/Insulin Regular (Novolin 70/30 (70/30 Units/Ml) 10 Ml) 8 units SC BIDAC [facility] Last Admin: 11/27/16 17:23 Dose: 8 units Potassium Chloride (K-Dur 20 Meq Er Tab) 20 meq PO DAILY [facility] Last Admin: 11/27/16 09:24 Dose: 20 meq - Labs Labs: 11/28/16 06:02 11/28/16 06:02 PT 14.8 SECONDS (9.7-12.2) H 11/25/16 02:28 INR 1.3 11/25/16 02:28 APTT 27 SECONDS (21-34) 11/25/16 02:28 - Additional Findings Additional findings: - Constitutional Appears: Non-toxic, No Acute Distress - Head Exam Head Exam: ATRAUMATIC, NORMOCEPHALIC - Eye Exam Eye Exam: Normal appearance - ENT Exam ENT Exam: Mucous Membranes Moist - Respiratory Exam Respiratory Exam: Wheezing (Right/left lower lobes), NORMAL BREATHING PATTERN - Cardiovascular Exam Cardiovascular Exam: +S1, +S2 - GI/Abdominal Exam GI & Abdominal Exam: Soft, Normal Bowel Sounds, Tender (mild, RLQ gas discomfort ) - Extremities Exam Extremities Exam: Pedal Edema Additional comments: Swelling, erythema, chronic venous stasis changes, ulcers - Neurological Exam Neurological Exam: Alert, Awake - Skin Skin Exam: Dry, Warm - pruning of b/l calves with some swelling. cool, dry, TTP Assessment and Plan - Assessment and Plan (Free Text) Assessment: Bilateral cellulitis of lower extremities 11/28: Vanco trough not drawn. F/u 10pm draw and adjust. Vanco trough goal 10-15. 11/27: mild temp overnight, 100.2F; vanco trough 6.8 L -> inc to Vanco 750mg IVPB BID. 11/27: Echo - EF 60%; overall normal. see full report. -Podiatry consult, Dr. Star Jack (11/28) - chronic redness/swelling in b/l legs (x1yrs) - likely b/l swelling due to venous insufficiency - possible bacteremia due to open wounds - Leukocytosis - resolved - Fever, T104.7 -> 101.1 - NS 0.9 at 100cc/hr - Tylenol 650mg PO Q6 PRN - Ceftriaxone 1Gm IVPB daily - Vancomycin 1Gm IVPB qDaily - B/L LE US - f/u Leukocytosis - Resolved - repeat BC - negative x24hrs - influenza a/b negative - UA negative - blood culture negative x2d Anemia 11/28: Hgb 10's, low, stable; Fe 40 L ferritin 117 N TIBC 218 L %Sat 18L Diabetes - ISS low dose - Novlolin 70/30 8u SC BIDAC - f/u A1c 7.1 Renal Insufficiency 11/28: BUN / Cr elevated, improving - monitor 11/27: B/L renal US - bilat punctate medullary calcification - medullary sponge kidney. 2 left renal cortical cysts. see report. - BUN 26 / Cr 1.8 on admission - NS 0.9 at 100cc/hr - Avoid home med - Diclofenac - Random Creatinine and Protein - (pending) - monitor Inguinal hernia - severe scrotal swelling, non-tender, non-reducible - f/u CT chest/abd/pelvis 11/25/ - no obstructions Sleep Apnea - recommend outpatient sleep apnea testing - pt homeless, but possibly his [facility] can refer him Hypotension - resolved - cont NS 0.9 at 100cc/hr - monitor Electrolyte Imbalance - Hypokalemia, repleted - monitor and adjust as needed Prophylaxis - Contraindication to SCDs (LE edema) - Pepcid 20mg PO daily - Heparin SC Q8 - Heart healthy diet, low sodium, carb consistent, Renal (non dialysis) - PT -> rec TCU vs home w/ home PT and RW <[place]man[place] C[place] V - Last Filed: 11/28/16 23:49> Objective - Vital Signs/Intake and Output Vital Signs (last 24 hours): Temp Pulse Resp BP Pulse Ox 97.2 F L 59 L 20 149/88 96 11/28/16 15:58 11/28/16 15:58 11/28/16 15:58 11/28/16 15:58 11/28/16 15:58 Intake and Output: 11/28/16 11/29/16 18:59 06:59 Intake Total 1270 Balance 1270 - Medications Medications: Current Medications Acetaminophen (Tylenol 325mg Tab) 650 mg PO Q6 PRN PRN Reason: Fever >100.4 F Last Admin: 11/26/16 16:26 Dose: 650 mg Famotidine (Pepcid) 20 mg PO DAILY [facility] Last Admin: 11/28/16 09:48 Dose: 20 mg Guaifenesin (Robitussin) 100 mg PO Q4H PRN PRN Reason: Cough Last Admin: 11/27/16 19:19 Dose: 100 mg Ceftriaxone Sodium 1 gm/ (Sodium Chloride) 100 mls @ 100 mls/hr IVPB Q24H [facility] Last Admin: 11/28/16 04:08 Dose: 100 mls/hr Vancomycin HCl 750 mg/ Sodium (Chloride) 250 mls @ 166.6 mls/hr IVPB Q12H [facility] Last Admin: 11/28/16 22:09 Dose: 166.6 mls/hr Insulin Aspart (Novolog) 0 unit SC ACHS [facility] PRN Reason: Protocol Last Admin: 11/28/16 21:50 Dose: Not Given Insulin Human Isoph/Insulin Regular (Novolin 70/30 (70/30 Units/Ml) 10 Ml) 8 units SC BIDAC [facility] Last Admin: 11/28/16 17:30 Dose: Not Given Potassium Chloride (K-Dur 20 Meq Er Tab) 20 meq PO DAILY [facility] Last Admin: 11/28/16 09:49 Dose: 20 meq Potassium Chloride (K-Dur 20 Meq Er Tab) 20 meq PO DAILY [facility] Last Admin: 11/28/16 09:49 Dose: Not Given Saccharomyces Boulardii (Florastor) 250 mg PO DAILY [facility] Last Admin: 11/28/16 11:45 Dose: 250 mg - Labs Labs: 11/28/16 06:02 11/28/16 06:02 PT 14.8 SECONDS (9.7-12.2) H 11/25/16 02:28 INR 1.3 11/25/16 02:28 APTT 27 SECONDS (21-34) 11/25/16 02:28 Attending/Attestation - Attestation I have personally seen and examined this patient.: Yes I have fully participated in the care of the patient.: Yes I have reviewed all pertinent clinical information, including history, physical exam and plan: Yes Notes (Text): Patient seen, examined, and case discussed with day-time resident. Patient seen at bedside during rounds, pleasant fellow with prior hx of cellulitis b/l anterior lower extremities and associated edema, in addition chronic renal insufficiency and diabetes. Patient is noted to be homeless, uses cane to assist in gait dysfunction, and does not take medications prior. 1) Sepsis * Criteria on admission: T: 104.7F, Leukocytosis: 14, and suspected source: likely cellulitis * Abx: Rocephin 1 gram IV Qdaily (active since 11/26/16) and Vancomycin 750mg IV Q12 hours (active since 11/27/16); monitor vancomycin trough level * Blood Cultures (11/25/16): no growth after 3 days X2 * Urine culture (11/25/16): no growth * Blood cultures (11/27/16): no growth after 24 hours X2 * Chest xray 11/25/16: no active disease * Ct Chest/abdomen/pelvis: noted lymphadenopathy retroperitoneal, pelvic, inguinal lymphadenopathy, fat stranding, 2) Bilateral lower extremity cellulitis * Per discussion with resident, appears to be improving; on my exam, no longer warm, hot, "angry" looking type of rash, and parts do rodríguez to suggest venous insufficiency in addition to dermatitis changes secondary to lower extremity edema * Podiatry consult (Dr. Jack): lower extremity edema, b/l cellulitis * Abx: Rocephin 1 gram IV Qdaily (active since 11/26/16) and Vancomycin 750mg IV Q12 hours (active since 11/27/16); monitor vancomycin trough level * Tmax: 100.2F, no leukocytosis * 11/27 Lower extremity venous duplex; negative for DVT; echocardiogram essentially normal 3) Chronic kidney disease * Renal US (11/26/16): bilateral punctate medullary calcifications suggestive of medullary sponge kidney. to left renal cortical cysts; noted on CT scan * Creatinine mildly improved * Will need to monitor in light of abx 4) Diabetes * [id number]: 7.1 * 70/30 8 units bidac 5) Gait dysfunction * PT eval 6) Anemia * suspected anemia of chronic disease given chronic kidney disease * ordered for iron studies, B12, Folate, reticulocyte count, and haptoglobin * pending stool occult blood * Suggestive of iron deficiency anemia 7)Pulmonary nodules * notes on CT scan; will need a repeat CT noncontrast 3-6 months; outpatient follow-up 8)Prophylactic care * PT eval * Case management referral: patient is homeless * Heparin 5000 units [id number] * pepcid 20mg po daily * florastor 250mg po bid
[2016-11-28] MEDS: (Novolog) Insulin Aspart, Recombinant 100 u/ml 10 ml vial SC SCH ×4 (08:00→21:50)
[2016-11-28] MEDS: (Novolin 70/30) NPH/Regular 70/30 Units/ml 10 ml vial SC SCH ×2 (08:00→17:30)
[2016-11-28] MEDS: Potassium Chloride 20 mEq ER Tab PO SCH (09:49)
[2016-11-28] MEDS ORDERED: Potassium Chloride 20 mEq ER Tab PO SCH (10:00)
[2016-11-28] MEDS: Saccharomyces Boulardi 250 mg Cap PO SCH (11:45)
[2016-11-28 14:14] LABS: IRON 40 ug/dL (49-181)
[2016-11-28 15:22] LABS: FOLATE 12.2 ng/mL
[2016-11-29] MEDS: guaiFENesin 100 mg/5 ml Syrup UD PO PRN ×2 (04:23→16:47)
[2016-11-29 06:21] LABS: BASO # 0.1 K/uL (0.0-0.2); BASO % 0.7 % (0.0-2.0); EOS # 0.4 K/uL (0.0-0.7); EOS % 5.5 % (0.0-4.0); HEMATOCRIT 33.1 % (35.0-51.0); LYMPH # 0.9 K/uL (1.0-4.3); LYMPH % 12.1 % (20.0-40.0); MEAN CELL VOLUME 78.6 fL (80.0-94.0); MEAN CORPUSCULAR HEMOGLOBIN 25.5 pg (27.0-31.0); MEAN CORPUSCULAR HGB CONC 32.4 g/dL (33.0-37.0); MONO # 0.5 K/uL (0.0-0.8); MONO % 7.1 % (0.0-10.0); NRBC % 0.1 % (0.0-2.0); RED CELL DISTRIBUTION WIDTH 16.1 % (11.5-14.5); WHITE BLOOD COUNT 7.5 K/uL (4.8-10.8)
[2016-11-29 06:37] LABS: BILIRUBIN,TOTAL 0.8 mg/dL (0.2-1.3)
[2016-11-29 06:38] LABS: ALB/GLOB RATIO 0.9 (1.0-2.1); CALCIUM 7.9 mg/dl (8.6-10.4); PHOSPHOROUS 2.9 mg/dL (2.5-4.5); TOTAL PROTEIN 7.1 g/dL (6.3-8.3)
[2016-11-29 06:39] LABS: MAGNESIUM 2.1 mg/dL (1.6-2.3)
--- NOTE | 2016-11-29 07:47 | CP.PCM.PN ---
<Imani Cesar V - Last Filed: 11/29/16 18:47> Objective - Vital Signs/Intake and Output Vital Signs (last 24 hours): Temp Pulse Resp BP Pulse Ox 98.1 F 75 20 148/87 98 11/29/16 14:59 11/29/16 16:00 11/29/16 14:59 11/29/16 16:07 11/29/16 14:59 Intake and Output: 11/29/16 11/29/16 06:59 18:59 Intake Total 2310 800 Output Total 1050 Balance 1260 800 - Medications Medications: Current Medications Acetaminophen (Tylenol 325mg Tab) 650 mg PO Q6 PRN PRN Reason: Fever >100.4 F Last Admin: 11/26/16 16:26 Dose: 650 mg Famotidine (Pepcid) 20 mg PO DAILY [facility] Last Admin: 11/29/16 10:59 Dose: 20 mg Guaifenesin (Robitussin) 100 mg PO Q4H PRN PRN Reason: Cough Last Admin: 11/29/16 16:47 Dose: 100 mg Heparin Sodium (Porcine) (Heparin) 5,000 units SC Q12 [facility] Last Admin: 11/29/16 10:59 Dose: 5,000 units Insulin Aspart (Novolog) 0 unit SC ACHS [facility] PRN Reason: Protocol Last Admin: 11/29/16 16:35 Dose: Not Given Insulin Human Isoph/Insulin Regular (Novolin 70/30 (70/30 Units/Ml) 10 Ml) 8 units SC BIDAC [facility] Last Admin: 11/29/16 16:47 Dose: 8 units Lactic Acid (Lac-Hydrin 12% Lotion (225 G)) 0 gm EXT DAILY [facility] Last Admin: 11/29/16 16:15 Dose: 1 lot Saccharomyces Boulardii (Florastor) 250 mg PO DAILY [facility] Last Admin: 11/29/16 10:59 Dose: 250 mg Trimethoprim/Sulfamethoxazole (Bactrim Ds Tab) 1 tab PO Q12H [facility] - Labs Labs: 11/29/16 06:12 11/29/16 06:12 PT 14.8 SECONDS (9.7-12.2) H 11/25/16 02:28 INR 1.3 11/25/16 02:28 APTT 27 SECONDS (21-34) 11/25/16 02:28 Attending/Attestation - Attestation I have personally seen and examined this patient.: Yes I have fully participated in the care of the patient.: Yes I have reviewed all pertinent clinical information, including history, physical exam and plan: Yes Notes (Text): Patient seen, examined and case discussed with day-time resident. Patient seen at bedside. Patient denies acute complaints; except for mild shortness of breathe, requesting if he can take a shower; reports he is stable does not require assistance. Patient's lower extremities are remarkably improved; Redness resolved, and less edematous compared to yesterday. Patient had elevated haptoglobin, lymphadenopathy noted CT scan, pending LDH would like heme-onc to evaluate for possible lymphoma given nonspecific symptoms. Pending podiatry evaluation; patient reports experience wherein he has needed appears Laura amos in the past. Patient possible discharge planning for tomorrow. Patient received IV abx today, and to start PO Bactrim DS 1 tab PO bid for 5 days for bilateral cellulitis. 1) Sepsis * Criteria on admission: T: 104.7F, Leukocytosis: 14, and suspected source: likely cellulitis * Abx: Rocephin 1 gram IV Qdaily (active since 11/26/16) and Vancomycin 750mg IV Q12 hours (active since 11/27/16); monitor vancomycin trough level: 9.8 ( Discontinue today) * Start Bactrim DS 1 tab PO bid tomorrow for 5 days * Blood Cultures (11/25/16): no growth after 4 days X2 * Urine culture (11/25/16): no growth * Blood cultures (11/27/16): no growth after 2 days X2 * Chest xray 11/25/16: no active disease * Ct Chest/abdomen/pelvis: noted lymphadenopathy retroperitoneal, pelvic, inguinal lymphadenopathy, fat stranding; urine culture negative 2) Bilateral lower extremity cellulitis * Per discussion with resident, appears to be improving; on my exam, no longer warm, hot, "angry" looking type of rash, and parts do rodríguez to suggest venous insufficiency in addition to dermatitis changes secondary to lower extremity edema on 11/28; today bilateral legs are remarkably improved; redness has resolved, and edema improved to trace * Podiatry consult (Dr. Jack): lower extremity edema, b/l cellulitis--> pending recommendations * Stop IV Abx: Rocephin 1 gram IV Qdaily (active since 11/26/16) and Vancomycin 750mg IV Q12 hours (active since 11/27/16); monitor vancomycin trough level and start PO Bactrim tomorrow * Tmax: 98.9F, no leukocytosis * 11/27 Lower extremity venous duplex; negative for DVT; echocardiogram essentially normal 3) Chronic kidney disease * Renal US (11/26/16): bilateral punctate medullary calcifications suggestive of medullary sponge kidney. to left renal cortical cysts; noted on CT scan * Creatinine mildly improved * Switched to PO Abx for tomorrow 4) Diabetes * [id number]: 7.1 * 70/30 8 units bidac-->Switch to glipize PO upon discharge (no renal impairment per UptoDate) 5) Gait dysfunction * PT eval: TCU or home with PT 6) Anemia * Elevated haptoglobin, ferritin elevated, low iron, low tibc, low iron saturation * Pending LDH * suspected anemia of chronic disease given chronic kidney disease * pending stool occult blood * Heme-onc evaluation 7)Pulmonary nodules * notes on CT scan; will need a repeat CT noncontrast 3-6 months; outpatient follow-up 8)Prophylactic care * PT eval: home with PT or TCU * Case management referral: patient is homeless * Heparin 5000 units [id number] * pepcid 20mg po daily * florastor 250mg po bid <Coleman Alvarez - Last Filed: 11/29/16 20:53> Subjective - Date & Time of Evaluation Date of Evaluation: 11/29/16 Time of Evaluation: 07:10 - Subjective Subjective: PGY-1 note for medicine service Pt seen and examined at bedside, chart reviewed and case discussed. Today he reports that he had a rough night because due to constant coughing but noted that his pain from his b/l LE is improved as well. PT brought him a 2 wheeled walker yesterday but the patient did not like ambulating with it as he felt out of control due to the lack of brakes. Today, PT will bring a 4 point cane for him to try. Denies fevers, chills, chest pain, abdominal pain, nausea, vomiting or any additional complaints. Objective - Vital Signs/Intake and Output Vital Signs (last 24 hours): Temp Pulse Resp BP Pulse Ox 98.4 F 67 20 169/88 H 96 11/28/16 23:10 11/28/16 23:10 11/28/16 23:10 11/28/16 23:10 11/28/16 23:10 Intake and Output: 11/29/16 11/29/16 06:59 18:59 Intake Total 2310 Output Total 1050 Balance 1260 - Medications Medications: Current Medications Acetaminophen (Tylenol 325mg Tab) 650 mg PO Q6 PRN PRN Reason: Fever >100.4 F Last Admin: 11/26/16 16:26 Dose: 650 mg Famotidine (Pepcid) 20 mg PO DAILY [facility] Last Admin: 11/28/16 09:48 Dose: 20 mg Guaifenesin (Robitussin) 100 mg PO Q4H PRN PRN Reason: Cough Last Admin: 11/29/16 04:23 Dose: 100 mg Heparin Sodium (Porcine) (Heparin) 5,000 units SC Q12 [facility] Ceftriaxone Sodium 1 gm/ (Sodium Chloride) 100 mls @ 100 mls/hr IVPB Q24H [facility] Last Admin: 11/29/16 04:23 Dose: 100 mls/hr Vancomycin HCl 750 mg/ Sodium (Chloride) 250 mls @ 166.6 mls/hr IVPB Q12H [facility] Last Admin: 11/28/16 22:09 Dose: 166.6 mls/hr Insulin Aspart (Novolog) 0 unit SC ACHS [facility] PRN Reason: Protocol Last Admin: 11/28/16 21:50 Dose: Not Given Insulin Human Isoph/Insulin Regular (Novolin 70/30 (70/30 Units/Ml) 10 Ml) 8 units SC BIDAC [facility] Last Admin: 11/28/16 17:30 Dose: Not Given Saccharomyces Boulardii (Florastor) 250 mg PO DAILY [facility] Last Admin: 11/28/16 11:45 Dose: 250 mg - Labs Labs: 11/29/16 06:12 11/29/16 06:12 PT 14.8 SECONDS (9.7-12.2) H 11/25/16 02:28 INR 1.3 11/25/16 02:28 APTT 27 SECONDS (21-34) 11/25/16 02:28 - Additional Findings Additional findings: - Constitutional Appears: Non-toxic, No Acute Distress - Head Exam Head Exam: ATRAUMATIC, NORMOCEPHALIC - Eye Exam Eye Exam: Normal appearance - ENT Exam ENT Exam: Mucous Membranes Moist - Respiratory Exam Respiratory Exam: Wheezing (Right/left lower lobes), NORMAL BREATHING PATTERN - Cardiovascular Exam Cardiovascular Exam: +S1, +S2 - GI/Abdominal Exam GI & Abdominal Exam: Soft, Normal Bowel Sounds, Tender (mild, RLQ gas discomfort ) - Extremities Exam Extremities Exam: Pedal Edema Additional comments: Swelling, erythema, chronic venous stasis changes, ulcers - Neurological Exam Neurological Exam: Alert, Awake - Skin Skin Exam: Dry, Warm - pruning of b/l calves with some swelling. cool, dry, TTP Assessment and Plan - Assessment and Plan (Free Text) Assessment: Bilateral cellulitis of lower extremities 11/29: Vanc trough 9.1. Stop vanco. Start Bactrim DS 1 tab PO Q12 (started 11/29). 11/28: Vanco trough not drawn. F/u 10pm draw and adjust. Vanco trough goal 10-15. 11/27: mild temp overnight, 100.2F; vanco trough 6.8 L -> inc to Vanco 750mg IVPB BID. 11/27: Echo - EF 60%; overall normal. see full report. -Podiatry consult, Dr. Star Jack (11/28), f/u recs. - chronic redness/swelling in b/l legs (x1yrs) - likely b/l swelling due to venous insufficiency - possible bacteremia due to open wounds - Leukocytosis - resolved - Fever, T104.7 -> 101.1 - NS 0.9 at 100cc/hr - Tylenol 650mg PO Q6 PRN - Ceftriaxone 1Gm IVPB daily - Vancomycin 1Gm IVPB qDaily - B/L LE US - f/u Leukocytosis 11/29: Lactate 707 H. - Resolved - repeat BC - negative x24hrs - influenza a/b negative - UA negative - blood culture negative x2d Lymphadenopathy Consult [facility], Dr. Mcdaniel, help appreciated. -CT abdomen with Retroperitoneal, pelvic and inguinal lymphadenopathy. Left- sided external iliac and inguinal nodes appear acutely inflamed with surrounding stranding of the adjacent fat. Uncertain significance. 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 2 left renal cortical cysts. see report. - BUN 26 / Cr 1.8 on admission - NS 0.9 at 100cc/hr - Avoid home med - Diclofenac - Random Creatinine and Protein - (pending) - monitor Inguinal hernia - severe scrotal swelling, non-tender, non-reducible - f/u CT chest/abd/pelvis 11/25/ - no obstructions Sleep Apnea - recommend outpatient sleep apnea testing - pt homeless, but possibly his [facility] clinic can refer him Hypotension - resolved - cont NS 0.9 at 100cc/hr - monitor Electrolyte Imbalance - Hypokalemia, repleted - monitor and adjust as needed Prophylaxis - Contraindication to SCDs (LE edema) - Pepcid 20mg PO daily - Heparin SC Q8 - Heart healthy diet, low sodium, carb consistent, Renal (non dialysis) - PT -> rec TCU vs home w/ home PT and RW
[2016-11-29] MEDS: (Novolin 70/30) NPH/Regular 70/30 Units/ml 10 ml vial SC SCH ×2 (08:57→16:47)
[2016-11-29] MEDS: (Novolog) Insulin Aspart, Recombinant 100 u/ml 10 ml vial SC SCH ×4 (08:58→21:51)
--- NOTE | 2016-11-29 10:36 | CP.PCM.CON ---
History of Present Illness - History of Present Illness History of Present Illness: 60 year old diabetic male presents with concerns of bilateral leg swelling and redness. Pt denies any recent trauma and has not recalled any major notable lower extremity wounds. Pt denies any pain to the area outside of when swelling occurs when legs are maintained in a dependent position for an extended period of time. Pt has no other pedal complaints at this time. Pt denies any acute overnight events. Pt denies recent n/v/f/c/cp/sob. Past Patient History - Past Medical History & Family History Past Medical History?: Yes - Past Social History Smoking Status: Never Smoked - ENDOCRINE/METABOLIC Hx Diabetes Mellitus Type 2: Yes - INTEGUMENTARY Hx Cellulitis: Yes (LE) - MUSCULOSKELETAL/RHEUMATOLOGICAL Hx Arthritis: Yes - GASTROINTESTINAL Other/Comment: Inguinal Hernia - PSYCHIATRIC Hx Substance Use: No - ANESTHESIA Hx Anesthesia: No Meds Allergies/Adverse Reactions: Allergies Allergy/AdvReac Type Severity Reaction Status Date / Time ciprofloxacin [From Cipro] Allergy Verified 11/25/16 00:57 ciprofloxacin HCl Allergy Verified 11/25/16 00:57 [From Cipro] - Medications Medications: Current Medications Acetaminophen (Tylenol 325mg Tab) 650 mg PO Q6 PRN PRN Reason: Fever >100.4 F Last Admin: 11/26/16 16:26 Dose: 650 mg Famotidine (Pepcid) 20 mg PO DAILY [facility] Last Admin: 11/28/16 09:48 Dose: 20 mg Guaifenesin (Robitussin) 100 mg PO Q4H PRN PRN Reason: Cough Last Admin: 11/29/16 04:23 Dose: 100 mg Heparin Sodium (Porcine) (Heparin) 5,000 units SC Q12 [facility] Ceftriaxone Sodium 1 gm/ (Sodium Chloride) 100 mls @ 100 mls/hr IVPB Q24H [facility] Last Admin: 11/29/16 04:23 Dose: 100 mls/hr Vancomycin HCl 750 mg/ Sodium (Chloride) 250 mls @ 166.6 mls/hr IVPB Q12H [facility] Last Admin: 11/28/16 22:09 Dose: 166.6 mls/hr Insulin Aspart (Novolog) 0 unit SC ACHS [facility] PRN Reason: Protocol Last Admin: 11/29/16 08:58 Dose: Not Given Insulin Human Isoph/Insulin Regular (Novolin 70/30 (70/30 Units/Ml) 10 Ml) 8 units SC BIDAC [facility] Last Admin: 11/29/16 08:57 Dose: Not Given Saccharomyces Boulardii (Florastor) 250 mg PO DAILY [facility] Last Admin: 11/28/16 11:45 Dose: 250 mg Physical Exam - Constitutional Appears: Well, Non-toxic, No Acute Distress - Extremities Exam Additional comments: DERM: Bilateral lateral leg focal--loci, blanchable, erythematous patch noted. No open wounds, interdigital maceratins noted. Minor diffuse pedal scaling extending proximally from arches up through lower 1/2 of legs bilaterally. Elongated, thickened, discolred toenails with subungual debris noted to all 10 toenails. Left- posterior-lateral scaling-dyshydrotic patch noted. Rigth- Stable lateral eschar nted at level of distal 1/3 of leg measuring 2c2 cm. VASC: DP and PT pulses fully palpable, graded 2/4. No calf tenderness noted. Calor noted extending from supra-genicular region distally to level of rearfoot bilaterally. NEURO: Protective sensation grossly diminished. ORTHO:No gross deformities noted. Pedal muscle strength graded as a 5/5 in all 4 major pedal muscle groups. - Neurological Exam Neurological exam: Alert, Oriented x3 - Psychiatric Exam Psychiatric exam: Normal Affect, Normal Mood Results - Vital Signs Recent Vital Signs: Last Vital Signs Temp 98.9 F 11/29/16 08:41 Pulse 67 11/29/16 08:41 Resp 18 11/29/16 08:41 BP 149/56 L 11/29/16 08:41 Pulse Ox 96 11/29/16 08:41 - Labs Result Diagrams: 11/30/16 06:06 11/30/16 06:06 Labs: Laboratory Results - last 24 hr 11/26/16 11/28/16 11/28/16 21:52 11:26 13:50 WBC RBC Hgb Hct MCV MCH MCHC RDW Plt Count MPV Neut % (Auto) Lymph % (Auto) [place] % (Auto) Eos % (Auto) Baso % (Auto) Neut # Lymph # [place] # Eos # Baso # Retic Count 0.9 Haptoglobin 352 H Sodium Potassium Chloride Carbon Dioxide Anion Gap BUN Creatinine Est GFR ( Amer) Est GFR (Non-Af Amer) POC Glucose (mg/dL) 102 Random Glucose Calcium Phosphorus Magnesium Iron 40 L TIBC 218 L % Saturation 18 L Ferritin 117.0 Total Bilirubin AST ALT Alkaline Phosphatase Total Protein Albumin Globulin Albumin/Globulin Ratio Vitamin B12 257 Folate 12.2 U Random Total Protein 108.0 H Vancomycin Trough 11/28/16 11/28/16 11/28/16 16:23 20:54 21:21 WBC RBC Hgb Hct MCV MCH MCHC RDW Plt Count MPV Neut % (Auto) Lymph % (Auto) [place] % (Auto) Eos % (Auto) Baso % (Auto) Neut # Lymph # [place] # Eos # Baso # Retic Count Haptoglobin Sodium Potassium Chloride Carbon Dioxide Anion Gap BUN Creatinine Est GFR ( Amer) Est GFR (Non-Af Amer) POC Glucose (mg/dL) 85 85 Random Glucose Calcium Phosphorus Magnesium Iron TIBC % Saturation Ferritin Total Bilirubin AST ALT Alkaline Phosphatase Total Protein Albumin Globulin Albumin/Globulin Ratio Vitamin B12 Folate U Random Total Protein Vancomycin Trough 9.1 11/29/16 11/29/16 06:12 06:16 WBC 7.5 RBC 4.21 L Hgb 10.7 L Hct 33.1 L MCV 78.6 L MCH 25.5 L MCHC 32.4 L RDW 16.1 H Plt Count 220 MPV 8.0 Neut % (Auto) 74.6 Lymph % (Auto) 12.1 L [place] % (Auto) 7.1 Eos % (Auto) 5.5 H Baso % (Auto) 0.7 Neut # 5.6 Lymph # 0.9 L [place] # 0.5 Eos # 0.4 Baso # 0.1 Retic Count Haptoglobin Sodium 144 Potassium 4.0 Chloride 97 L Carbon Dioxide 32 H Anion Gap 19 BUN 21 H Creatinine 1.5 Est GFR ( Amer) 58 Est GFR (Non-Af Amer) 48 POC Glucose (mg/dL) 96 Random Glucose 90 Calcium 7.9 L Phosphorus 2.9 Magnesium 2.1 Iron TIBC % Saturation Ferritin Total Bilirubin 0.8 AST 36 ALT 26 Alkaline Phosphatase 58 Total Protein 7.1 Albumin 3.3 L Globulin 3.8 Albumin/Globulin Ratio 0.9 L Vitamin B12 Folate U Random Total Protein Vancomycin Trough Assessment & Plan - Assessment and Plan (Free Text) Assessment: 60 year old male with 1) venous stasis dermatitis 2) onychomycosis 3) Cellulitis likely secondary to tinea pedis.. Plan: Pt evaluated and treated at bedside. Chart, labs, and vitals reviewed. Discussed with attending Dr. Jack Prescribed Lotrisone cream for use to bilateral lower extremities. Nail debridement to be performed tomorrow. Continue IV abx Podiatry will continue to follw patient while inhouse. - Date & Time Date: 11/29/16 Time: 10:45
[2016-11-29] MEDS: Saccharomyces Boulardi 250 mg Cap PO SCH (10:59)
[2016-11-29] MEDS: Ammonium Lactate 12% Lotion (225 g) EXT SCH (16:15)
[2016-11-29] MEDS: Tmp-Smz 800 mg-160 mg DS Tab PO SCH (20:10)
--- NOTE | 2016-11-29 22:38 | CP.PCM.CON ---
History of Present Illness - History of Present Illness History of Present Illness: 60 year old male with a history of DM, chronic cellulitis of the LE, admitted with acute exacerbation of his cellulitis, found to have retroperitoneal and pelvic lymphadenopathy. The patient report to swelling in the groin area which he attributed to his hernia. He denies fevers and chills. He has no weightloss or nightsweats. Past medical history: DM Past surgical history: None Family history: Denies hematologic and oncologic problems Social history: Denies tobacco, alcohol, and illicit drug use. Allergies: Cipro Review of systems: All remaining review of systems including HEENT, cardiovascular, respiratory, gastrointestinal, genitourinary, musculoskeletal, dermatologic, neurologic, and psychiatric are negative unless mentioned in the HPI. Past Patient History - Past Medical History & Family History Past Medical History?: Yes - Past Social History Smoking Status: Never Smoked - ENDOCRINE/METABOLIC Hx Diabetes Mellitus Type 2: Yes - INTEGUMENTARY Hx Cellulitis: Yes (LE) - MUSCULOSKELETAL/RHEUMATOLOGICAL Hx Arthritis: Yes - GASTROINTESTINAL Other/Comment: Inguinal Hernia - PSYCHIATRIC Hx Substance Use: No - ANESTHESIA Hx Anesthesia: No Meds Allergies/Adverse Reactions: Allergies Allergy/AdvReac Type Severity Reaction Status Date / Time ciprofloxacin [From Cipro] Allergy Verified 11/25/16 00:57 ciprofloxacin HCl Allergy Verified 11/25/16 00:57 [From Cipro] - Medications Medications: Current Medications Acetaminophen (Tylenol 325mg Tab) 650 mg PO Q6 PRN PRN Reason: Fever >100.4 F Last Admin: 11/26/16 16:26 Dose: 650 mg Famotidine (Pepcid) 20 mg PO DAILY [facility] Last Admin: 11/29/16 10:59 Dose: 20 mg Guaifenesin (Robitussin) 100 mg PO Q4H PRN PRN Reason: Cough Last Admin: 11/29/16 16:47 Dose: 100 mg Heparin Sodium (Porcine) (Heparin) 5,000 units SC Q12 [facility] Last Admin: 11/29/16 21:52 Dose: 5,000 units Insulin Aspart (Novolog) 0 unit SC ACHS [facility] PRN Reason: Protocol Last Admin: 11/29/16 21:51 Dose: Not Given Insulin Human Isoph/Insulin Regular (Novolin 70/30 (70/30 Units/Ml) 10 Ml) 8 units SC BIDAC [facility] Last Admin: 11/29/16 16:47 Dose: 8 units Lactic Acid (Lac-Hydrin 12% Lotion (225 G)) 0 gm EXT DAILY [facility] Last Admin: 11/29/16 16:15 Dose: 1 lot Saccharomyces Boulardii (Florastor) 250 mg PO DAILY [facility] Last Admin: 11/29/16 10:59 Dose: 250 mg Trimethoprim/Sulfamethoxazole (Bactrim Ds Tab) 1 tab PO Q12H [facility] Last Admin: 11/29/16 20:10 Dose: 1 tab Physical Exam - Head Exam Head Exam: ATRAUMATIC - Eye Exam Eye Exam: Normal appearance - ENT Exam ENT Exam: Mucous Membranes Dry - Respiratory Exam Respiratory Exam: NORMAL BREATHING PATTERN - Cardiovascular Exam Cardiovascular Exam: +S1, +S2 - GI/Abdominal Exam GI & Abdominal Exam: Normal Bowel Sounds - Extremities Exam Extremities exam: Positive for: pedal edema - Neurological Exam Neurological exam: Oriented x3 - Psychiatric Exam Psychiatric exam: Normal Affect, Normal Mood - Skin Skin Exam: Warm Results - Vital Signs Recent Vital Signs: Last Vital Signs Temp 98.1 F 11/29/16 14:59 Pulse 75 11/29/16 16:00 Resp 20 11/29/16 14:59 BP 148/87 11/29/16 16:07 Pulse Ox 98 11/29/16 14:59 - Labs Result Diagrams: 11/29/16 06:12 11/29/16 06:12 Labs: Laboratory Results - last 24 hr 11/26/16 11/28/16 11/29/16 21:52 13:50 06:12 WBC 7.5 RBC 4.21 L Hgb 10.7 L Hct 33.1 L MCV 78.6 L MCH 25.5 L MCHC 32.4 L RDW 16.1 H Plt Count 220 MPV 8.0 Neut % (Auto) 74.6 Lymph % (Auto) 12.1 L [place] % (Auto) 7.1 Eos % (Auto) 5.5 H Baso % (Auto) 0.7 Neut # 5.6 Lymph # 0.9 L [place] # 0.5 Eos # 0.4 Baso # 0.1 Haptoglobin 352 H Sodium 144 Potassium 4.0 Chloride 97 L Carbon Dioxide 32 H Anion Gap 19 BUN 21 H Creatinine 1.5 Est GFR ( Amer) 58 Est GFR (Non-Af Amer) 48 POC Glucose (mg/dL) Random Glucose 90 Calcium 7.9 L Phosphorus 2.9 Magnesium 2.1 Total Bilirubin 0.8 AST 36 ALT 26 Alkaline Phosphatase 58 Lactate Dehydrogenase 707 H Total Protein 7.1 Albumin 3.3 L Globulin 3.8 Albumin/Globulin Ratio 0.9 L U Random Total Protein 108.0 H 11/29/16 11/29/16 11/29/16 06:16 11:30 15:47 WBC RBC Hgb Hct MCV MCH MCHC RDW Plt Count MPV Neut % (Auto) Lymph % (Auto) [place] % (Auto) Eos % (Auto) Baso % (Auto) Neut # Lymph # [place] # Eos # Baso # Haptoglobin Sodium Potassium Chloride Carbon Dioxide Anion Gap BUN Creatinine Est GFR ( Amer) Est GFR (Non-Af Amer) POC Glucose (mg/dL) 96 126 H 145 H Random Glucose Calcium Phosphorus Magnesium Total Bilirubin AST ALT Alkaline Phosphatase Lactate Dehydrogenase Total Protein Albumin Globulin Albumin/Globulin Ratio U Random Total Protein 11/29/16 21:37 WBC RBC Hgb Hct MCV MCH MCHC RDW Plt Count MPV Neut % (Auto) Lymph % (Auto) [place] % (Auto) Eos % (Auto) Baso % (Auto) Neut # Lymph # [place] # Eos # Baso # Haptoglobin Sodium Potassium Chloride Carbon Dioxide Anion Gap BUN Creatinine Est GFR ( Amer) Est GFR (Non-Af Amer) POC Glucose (mg/dL) 81 Random Glucose Calcium Phosphorus Magnesium Total Bilirubin AST ALT Alkaline Phosphatase Lactate Dehydrogenase Total Protein Albumin Globulin Albumin/Globulin Ratio U Random Total Protein Assessment & Plan (1) Lymphadenopathy Assessment and Plan: retroperitoneal, pelvic, and inguinal lymphadenopathy may be related to cellulites repeat exam at the completion of antibiotics. If persist, may need excisional lymph node biopsy for further evaluation Status: Acute (2) Splenomegaly Assessment and Plan: unknown etiology ?malignancy Status: Acute (3) Anemia Assessment and Plan: will check ferritin, retic count, b12, folate, FOBT to further characterize Thank you for this interesting consult. Status: Acute
[2016-11-30 06:26] LABS: BASO # 0.1 K/uL (0.0-0.2); BASO % 0.7 % (0.0-2.0); EOS # 0.5 K/uL (0.0-0.7); EOS % 5.8 % (0.0-4.0); HEMATOCRIT 34.8 % (35.0-51.0); LYMPH # 1.2 K/uL (1.0-4.3); LYMPH % 14.7 % (20.0-40.0); MEAN CELL VOLUME 79.7 fL (80.0-94.0); MEAN CORPUSCULAR HEMOGLOBIN 26.3 pg (27.0-31.0); MEAN PLATELET VOLUME 7.6 fL (7.2-11.7); MONO # 0.5 K/uL (0.0-0.8); MONO % 6.4 % (0.0-10.0); RED CELL DISTRIBUTION WIDTH 16.1 % (11.5-14.5); WHITE BLOOD COUNT 8.1 K/uL (4.8-10.8)
[2016-11-30 06:51] LABS: POTASSIUM 4.2 mmol/L (3.6-5.2)
[2016-11-30 06:54] LABS: ALB/GLOB RATIO 0.9 (1.0-2.1); BILIRUBIN,TOTAL 0.8 mg/dL (0.2-1.3); CALCIUM 8.5 mg/dl (8.6-10.4); MAGNESIUM 2.3 mg/dL (1.6-2.3); PHOSPHOROUS 3.6 mg/dL (2.5-4.5); TOTAL PROTEIN 7.4 g/dL (6.3-8.3)
[2016-11-30 07:47] LABS: FOLATE 14.4 ng/mL
[2016-11-30 07:52] VITALS: O2SAT 95
[2016-11-30] MEDS: Tmp-Smz 800 mg-160 mg DS Tab PO SCH (08:53)
[2016-11-30] MEDS: (Novolin 70/30) NPH/Regular 70/30 Units/ml 10 ml vial SC SCH (08:54)
[2016-11-30] MEDS: (Novolog) Insulin Aspart, Recombinant 100 u/ml 10 ml vial SC SCH ×2 (08:55→12:17)
[2016-11-30] MEDS ORDERED: Clotrimazole/Betamethasone Cream(15 gm) TOP SCH (10:00)
[2016-11-30] MEDS: Saccharomyces Boulardi 250 mg Cap PO SCH (10:33)
--- NOTE | 2016-11-30 10:38 | CP.PCM.PN ---
Subjective - Date & Time of Evaluation Date of Evaluation: 11/30/16 Time of Evaluation: 13:45 - Subjective Subjective: 60 year old diabetic male seen at bedside concerning of bilateral leg swelling, redness, and elongated fungal toenails. Pt has no other pedal complaints at this time, though reports intermittent itching to the affected pedal areas. . Pt denies any acute overnight events. Pt denies recent n/v/f/c/cp/sob. Objective - Vital Signs/Intake and Output Vital Signs (last 24 hours): Temp Pulse Resp BP Pulse Ox 99.1 F 71 18 163/79 H 95 11/30/16 07:00 11/30/16 08:00 11/30/16 07:00 11/30/16 07:00 11/30/16 07:00 Intake and Output: 11/30/16 11/30/16 06:59 18:59 Intake Total 840 Output Total 950 Balance -110 - Medications Medications: Current Medications Acetaminophen (Tylenol 325mg Tab) 650 mg PO Q6 PRN PRN Reason: Fever >100.4 F Last Admin: 11/26/16 16:26 Dose: 650 mg Amlodipine Besylate (Norvasc) 5 mg PO STAT STA Stop: 11/30/16 10:33 Betamethasone/Clotrimazole (Lotrisone) 0 gm TOP BID BHARAT Famotidine (Pepcid) 20 mg PO DAILY [facility] Last Admin: 11/30/16 10:34 Dose: 20 mg Guaifenesin (Robitussin) 100 mg PO Q4H PRN PRN Reason: Cough Last Admin: 11/29/16 16:47 Dose: 100 mg Heparin Sodium (Porcine) (Heparin) 5,000 units SC Q12 BHARAT Last Admin: 11/29/16 21:52 Dose: 5,000 units Insulin Aspart (Novolog) 0 unit SC ACHS BHARAT PRN Reason: Protocol Last Admin: 11/30/16 08:55 Dose: Not Given Insulin Human Isoph/Insulin Regular (Novolin 70/30 (70/30 Units/Ml) 10 Ml) 8 units SC BIDAC [facility] Last Admin: 11/30/16 08:54 Dose: Not Given Lactic Acid (Lac-Hydrin 12% Lotion (225 G)) 0 gm EXT DAILY [facility] Last Admin: 11/29/16 16:15 Dose: 1 lot Saccharomyces Boulardii (Florastor) 250 mg PO DAILY [facility] Last Admin: 11/30/16 10:33 Dose: 250 mg Trimethoprim/Sulfamethoxazole (Bactrim Ds Tab) 1 tab PO Q12H [facility] Last Admin: 11/30/16 08:53 Dose: 1 tab - Labs Labs: 11/30/16 06:06 11/30/16 06:06 PT 14.8 SECONDS (9.7-12.2) H 11/25/16 02:28 INR 1.3 11/25/16 02:28 APTT 27 SECONDS (21-34) 11/25/16 02:28 - Constitutional Appears: Well, Non-toxic, No Acute Distress - Extremities Exam Additional comments: DERM: Bilateral lateral leg focal--loci, blanchable, erythematous patch noted, with noted rubor on dependency and resolution on elevation. No open wounds, interdigital maceratins noted. Minor diffuse pedal scaling extending proximally from arches up through lower 1/2 of legs bilaterally. Elongated, thickened, discolred toenails with sub-ungual debris noted to all 10 toenails. Left- posterior-lateral scaling-dyshydrotic patch noted. Rigth- Stable lateral eschar noted at level of distal 1/3 of leg measuring 2c2 cm. VASC: DP and PT pulses fully palpable, graded 2/4. No calf tenderness noted. Calor noted extending from supra-genicular region distally to level of rearfoot bilaterally. NEURO: Protective sensation grossly diminished. ORTHO:No gross deformities noted. Pedal muscle strength graded as a 5/5 in all 4 major pedal muscle groups. - Neurological Exam Neurological Exam: Alert, Awake, Oriented x3 - Psychiatric Exam Psychiatric exam: Normal Affect, Normal Mood Assessment and Plan - Assessment and Plan (Free Text) Assessment: 60 year old male with 1) venous stasis dermatitis 2) onychomycosis and tinea pedis. Plan: Pt evaluated and treated at bedside. Chart, labs, and vitals reviewed. Discussed with attending Dr. Jack Prescribed Lotrisone cream for use to bilateral lower extremities. Aseptic Nail debridement performed on all 10 toenails without incident. Pt is stable form podiatry standpoint for discharge. Pt to follow up in [facility]ry clinic with Dr. Jack as needed for podiatric foot care. .
[2016-11-30] MEDS: Ammonium Lactate 12% Lotion (225 g) EXT SCH (10:46)
[2016-11-30 16:22] VITALS: BP 135/77; PULSE 75; RESP 20; TEMP 98.1
--- NOTE | 2016-11-30 20:41 | CP.PCM.DIS ---
Provider - Provider Date of Admission: 11/25/16 04:30 Attending physician: Nelson Grant MD Time Spent in preparation of Discharge (in minutes): 40 Hospital Course - Lab Results Lab Results: Micro Results 11/27/16 14:05 Blood Blood Culture - Preliminary NO GROWTH AFTER 3 DAYS 11/27/16 14:05 Blood Blood Culture - Preliminary NO GROWTH AFTER 3 DAYS 11/25/16 07:00 Blood Blood Culture - Final NO GROWTH AFTER 5 DAYS 11/25/16 07:00 Blood Gram Stain - Final TEST NOT PERFORMED 11/25/16 14:05 Urine Urine Culture - Final No Growth (<1,000 CFU/ML) Most Recent Lab Values WBC 8.1 K/uL (4.8-10.8) 11/30/16 06:06 RBC 4.37 Mil/uL (4.40-5.90) L 11/30/16 06:06 Hgb 11.5 g/dL (12.0-18.0) L 11/30/16 06:06 Hct 34.8 % (35.0-51.0) L 11/30/16 06:06 MCV 79.7 fL (80.0-94.0) L 11/30/16 06:06 MCH 26.3 pg (27.0-31.0) L 11/30/16 06:06 MCHC 33.0 g/dL (33.0-37.0) 11/30/16 06:06 RDW 16.1 % (11.5-14.5) H 11/30/16 06:06 Plt Count 265 K/uL (130-400) 11/30/16 06:06 MPV 7.6 fL (7.2-11.7) 11/30/16 06:06 Neut % (Auto) 72.4 % (50.0-75.0) 11/30/16 06:06 Lymph % (Auto) 14.7 % (20.0-40.0) L 11/30/16 06:06 Lake % (Auto) 6.4 % (0.0-10.0) 11/30/16 06:06 Eos % (Auto) 5.8 % (0.0-4.0) H 11/30/16 06:06 Baso % (Auto) 0.7 % (0.0-2.0) 11/30/16 06:06 Neut # 5.9 K/uL (1.8-7.0) 11/30/16 06:06 Lymph # 1.2 K/uL (1.0-4.3) 11/30/16 06:06 Lake # 0.5 K/uL (0.0-0.8) 11/30/16 06:06 Eos # 0.5 K/uL (0.0-0.7) 11/30/16 06:06 Baso # 0.1 K/uL (0.0-0.2) 11/30/16 06:06 Neutrophils % (Manual) 75 % (50-75) 11/26/16 10:31 Band Neutrophils % 9 % (0-2) H 11/26/16 10:31 Lymphocytes % (Manual) 9 % (20-40) L 11/26/16 10:31 Monocytes % (Manual) 7 % (0-10) 11/26/16 10:31 Basophils % (Manual) TEST NOT PERFORMED 11/25/16 02:28 Toxic Granulation Present 11/26/16 10:31 Platelet Estimate Normal (NORMAL) 11/26/16 10:31 Large Platelets Present 11/26/16 10:31 Polychromasia Slight 11/26/16 10:31 Hypochromasia (manual) Slight 11/26/16 10:31 Poikilocytosis (manual Slight 11/25/16 02:28 Anisocytosis (manual) Slight 11/26/16 10:31 Retic Count 1.3 % (0.5-1.5) 11/30/16 06:06 Haptoglobin 352 mg/dL (43-212) H 11/28/16 13:50 PT 14.8 SECONDS (9.7-12.2) H 11/25/16 02:28 INR 1.3 11/25/16 02:28 APTT 27 SECONDS (21-34) 11/25/16 02:28 pO2 18 mm/Hg (30-55) L 11/25/16 02:49 VBG pH 7.40 (7.32-7.43) 11/25/16 02:49 VBG pCO2 51 mmHg (40-60) 11/25/16 02:49 VBG HCO3 27.3 mmol/L 11/25/16 02:49 VBG Total CO2 33.2 mmol/L (22-28) H 11/25/16 02:49 VBG O2 Sat (Calc) 24.0 % (40-65) L 11/25/16 02:49 VBG Base Excess 5.5 mmol/L (0.0-2.0) H 11/25/16 02:49 VBG Potassium 3.6 mmol/L (3.6-5.2) 11/25/16 02:49 Sodium 139.0 mmol/l (132-148) 11/25/16 02:49 Chloride 105.0 mmol/L (98-107) 11/25/16 02:49 Glucose 140 mg/dl (75-110) H 11/25/16 02:49 Lactate 1.4 mmol/L (0.7-2.1) 11/25/16 02:49 Sodium 143 mmol/L (132-148) 11/30/16 06:06 Potassium 4.2 mmol/L (3.6-5.2) 11/30/16 06:06 Chloride 95 mmol/L (98-107) L 11/30/16 06:06 Carbon Dioxide 34 mmol/L (22-30) H 11/30/16 06:06 Anion Gap 18 (10-20) 11/30/16 06:06 BUN 20 mg/dL (9-20) 11/30/16 06:06 Creatinine 1.7 MG/DL (0.8-1.5) H 11/30/16 06:06 Est GFR ( Amer) 50 11/30/16 06:06 Est GFR (Non-Af Amer) 41 11/30/16 06:06 POC Glucose (mg/dL) 105 mg/dL (65-110) 11/30/16 12:20 Random Glucose 88 mg/dL (75-110) 11/30/16 06:06 Hemoglobin A1c 7.1 % (4.2-6.5) H 11/25/16 12:00 Calcium 8.5 mg/dl (8.6-10.4) L 11/30/16 06:06 Phosphorus 3.6 mg/dL (2.5-4.5) 11/30/16 06:06 Magnesium 2.3 mg/dL (1.6-2.3) 11/30/16 06:06 Iron 40 ug/dL (49-181) L 11/28/16 13:50 TIBC 218 ug/dL (250-450) L 11/28/16 13:50 % Saturation 18 (20-55) L 11/28/16 13:50 Ferritin 86.3 ng/mL 11/30/16 06:06 Total Bilirubin 0.8 mg/dL (0.2-1.3) 11/30/16 06:06 AST 29 U/L (17-59) 11/30/16 06:06 ALT 28 U/L (21-72) 11/30/16 06:06 Alkaline Phosphatase 59 U/L (38-126) 11/30/16 06:06 Lactate Dehydrogenase 707 U/L (313-618) H 11/29/16 06:12 Total Protein 7.4 g/dL (6.3-8.3) 11/30/16 06:06 Albumin 3.5 g/dL (3.5-5.0) 11/30/16 06:06 Globulin 3.9 gm/dL (2.2-3.9) 11/30/16 06:06 Albumin/Globulin Ratio 0.9 (1.0-2.1) L 11/30/16 06:06 Triglycerides 81 mg/dL (0-149) 11/25/16 12:00 Cholesterol 97 mg/dL (0-199) 11/25/16 12:00 LDL Cholesterol Direct 54 mg/dL (0-129) 11/25/16 12:00 HDL Cholesterol 21 mg/dL (30-70) L 11/25/16 12:00 Vitamin B12 294 pg/mL (239-931) 11/30/16 06:06 Folate 14.4 ng/mL 11/30/16 06:06 Free T4 1.02 ng/dL (0.78-2.19) 11/25/16 16:51 TSH 3rd Generation 1.09 mIU/L (0.46-4.68) 11/25/16 12:00 Venous Blood Potassium 3.6 mmol/L (3.6-5.2) 11/25/16 02:49 Urine Color Yellow (YELLOW) 11/25/16 02:22 Urine Clarity Clear (Clear) 11/25/16 02:22 Urine pH 5.0 (5.0-8.0) 11/25/16 02:22 Ur Specific [place] 1.011 (1.003-1.030) 11/25/16 02:22 Urine Protein 1+ mg/dL (NEGATIVE) H 11/25/16 02:22 Urine Glucose (UA) Normal mg/dL (Normal) 11/25/16 02:22 Urine Ketones Negative mg/dL (NEGATIVE) 11/25/16 02:22 Urine Blood Trace (NEGATIVE) H 11/25/16 02:22 Urine Nitrate Negative (NEGATIVE) 11/25/16 02:22 Urine Bilirubin Negative (NEGATIVE) 11/25/16 02:22 Urine Urobilinogen Normal mg/dL (0.2-1.0) 11/25/16 02:22 Ur Leukocyte Esterase Neg Ubaldo/uL (Negative) 11/25/16 02:22 Urine WBC (Auto) 5 /hpf (0-5) 11/25/16 02:22 Urine RBC (Auto) < 1 /hpf (0-3) 11/25/16 02:22 Ur Squamous Epith Cells < 1 /hpf (0-5) 11/25/16 02:22 Ur Random Creatinine 61.2 mg/dL 11/26/16 21:52 U Random Total Protein 108.0 mg/dL (0.0-12.0) H 11/26/16 21:52 Vancomycin Trough 9.1 ug/mL (5.0-10.0) 11/28/16 21:21 Random Vancomycin 15.64 ug/mL 11/26/16 12:42 Urine Opiates Screen Negative (NEGATIVE) 11/26/16 21:52 Urine Methadone Screen Negative (NEGATIVE) 11/26/16 21:52 Ur Barbiturates Screen Negative (NEGATIVE) 11/26/16 21:52 Ur Phencyclidine Scrn Negative (NEGATIVE) 11/26/16 21:52 Ur Amphetamines Screen Negative (NEGATIVE) 11/26/16 21:52 U Benzodiazepines Scrn Negative (NEGATIVE) 11/26/16 21:52 U Oth Cocaine Metabols Negative (NEGATIVE) 11/26/16 21:52 U Cannabinoids Screen Negative (NEGATIVE) 11/26/16 21:52 Hep Bs Antigen Negative (NEGATIVE) 11/27/16 06:00 Hepatitis C Antibody Negative (NEGATIVE) 11/27/16 06:00 HIV 1&2 Antibody Screen Negative (NEGATIVE) 11/27/16 06:00 Influenza Typ A,B (EIA) Negative for flu a/b (NEGATIVE) 11/25/16 02:50 - Hospital Course Hospital Course: Upon hospital admission: 60 year old Male with PMHx LE cellulites, LE swelling (x1yr), DM - presents c/o fever + b/l leg swelling/warmth for the past 1.5 weeks. Patient reports this is his second episode of b/l cellulites due to severe LE swelling (resulting in open wounds), over the past year. He states that last week, the swelling in his b/l extremities got so sever, that 2 wounds opened on each leg, draining clear fluid daily. Shortly after, the legs became more warm, red, and tender. He admits to visiting a clinic in [facility], where his PMD Dr. Renner wrapped the b/l legs to help control the swelling. Admits to fever , weakness, n/v, urinary frequency (1x per hour), LE swelling, leg pain at site of open wounds. Denies chills, diaphoresis, H/A, dizziness, chest pain, SOB, orthopnea, abdominal pain, nausea, d/c, dysuria, back pain, or any additional acute complaints. ED course: Tylenol 975; Motrin 600; NS 2L; Vanco 1Gm IVPB; Rocephin 1Gm IVPB PMHx: LE cellulites, LE swelling (x1yr), DM, Arthritis, Inguinal Hernia (x30 years) PSHx: denies Meds: Novolin 70/30 15u daily; Diclofenac BID Allergies: ciprofloxacin, Flagyl (itchy, SOB, feels like throat is closing) FamHx: unknown SocHx: homeless sleeping on streets x1yr. 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 PMD: Dr. Renner ([facility] clinic) During hospital course, the patient was evaluated and treated for the following : Bilateral cellulitis of lower extremities 11/29: Vanc trough 9.1. Stop vanco. Start Bactrim DS 1 tab PO Q12 (started 11/29). 11/28: Vanco trough not drawn. F/u 10pm draw and adjust. Vanco trough goal 10-15. 11/27: mild temp overnight, 100.2F; vanco trough 6.8 L -> inc to Vanco 750mg IVPB BID. 11/27: Echo - EF 60%; overall normal. see full report. -Podiatry consult, Dr. Star Jack (11/28), f/u recs. - chronic redness/swelling in b/l legs (x1yrs) - likely b/l swelling due to venous insufficiency - possible bacteremia due to open wounds - Leukocytosis - resolved - Fever, T104.7 -> 101.1 - NS 0.9 at 100cc/hr - Tylenol 650mg PO Q6 PRN - Ceftriaxone 1Gm IVPB daily - Vancomycin 1Gm IVPB qDaily - B/L LE US - f/u Leukocytosis 11/29: Lactate 707 H. - Resolved - repeat BC - negative x24hrs - influenza a/b negative - UA negative - blood culture negative x2d Lymphadenopathy Consult Hemeonc, Dr. Mcdaniel, help appreciated. -CT abdomen with Retroperitoneal, pelvic and inguinal lymphadenopathy. Left- sided external iliac and inguinal nodes appear acutely inflamed with surrounding stranding of the adjacent fat. Uncertain significance. 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 2 left renal cortical cysts. see report. - BUN 26 / Cr 1.8 on admission - NS 0.9 at 100cc/hr - Avoid home med - Diclofenac - Random Creatinine and Protein - (pending) - monitor Inguinal hernia - severe scrotal swelling, non-tender, non-reducible - f/u CT chest/abd/pelvis 11/25/ - no obstructions Sleep Apnea - recommend outpatient sleep apnea testing - pt homeless, but possibly his [facility] clinic can refer him Upon hospital discharge, the patient was provided with the following instructions: Patient is stable for discharge per Dr. Cesar. Patient should resume all medications as outlined in this document. Additionally, patient should take the new medications listed below (scripts provided). 1. Please make an appointment and follow up with your Primary Doctor in the [facility] you attend, within one week of discharge. This doctor can profide you with a referral for 1. Nephrology; 2. Podiatry; 3. Pulmonology. Also, please discontinue your home med Allopurinol until you discuss alternatives with your PMD. 2. Please make an appointment and follow up with a Lpn Cma regarding our CT finding of Medullary sponge disease. 3. Please make an appointment and follow up with a Chemical Inspector/Oncologist (Dr. Mcdaniel) to follow up on possible excisional lymph node biopsy (once antibiotic treatment is complete). 4. Please make an appointment and follow up with a Commercial Counsel regarding Multiple pulmonary nodules, some ground-glass. Largest ground-glass nodule 6 mm. Followup noncontrast chest CT 3 months is advised as per Fleischner society criteria. Patient should return to ED immediately if symptoms return or worsen. Instructions discussed with patient who understood and agreed. Newly prescribed medications: Ammonum Lactate 12% - apply to your lower extremities - daily. Glipizide 2.5 mg PO daily (take 1/2 of a 5mg tab daily, for a total of 2.5mg) Bactrim DS 1 tab PO BID x 5days Norvasc 5mg PO daily #30 This is a summary of the patient's hospital admission, see chart for comprehensive detail. - Date & Time of H&P Date of H&P: 11/25/16 Time of H&P: 04:45 Discharge Exam - Additional Findings Additional findings: - Constitutional Appears: Non-toxic, No Acute Distress - Head Exam Head Exam: ATRAUMATIC, NORMOCEPHALIC - Eye Exam Eye Exam: Normal appearance - ENT Exam ENT Exam: Mucous Membranes Moist - Respiratory Exam Respiratory Exam: Wheezing (Right/left lower lobes), NORMAL BREATHING PATTERN - Cardiovascular Exam Cardiovascular Exam: +S1, +S2 - GI/Abdominal Exam GI & Abdominal Exam: Soft, Normal Bowel Sounds, Tender (mild, RLQ gas discomfort ) - Extremities Exam Extremities Exam: Pedal Edema Additional comments: Swelling, erythema, chronic venous stasis changes, ulcers - Neurological Exam Neurological Exam: Alert, Awake - Skin Skin Exam: Dry, Warm - pruning of b/l calves with some swelling. cool, dry, TTP Discharge Plan - Discharge Medications Prescriptions: Ammonium Lactate 12% [Lac-Hydrin 12% Lotion (225 g)] 1 gm EXT DAILY #1 bottle GlipiZIDE [Glucotrol] 2.5 mg PO DAILY 30 Days Sulfamethoxazole/Trimethoprim [Bactrim DS Tab] 1 tab PO Q12H #10 tab amLODIPine [Norvasc] 5 mg PO DAILY #30 tab - Follow Up Plan Condition: GOOD Disposition: HOME/ ROUTINE Instructions: Cellulitis (DC), Cellulitis (GEN), Fever in Adults (GEN) Additional Instructions: Patient is stable for discharge per Dr. Cesar. Patient should resume all medications as outlined in this document. Additionally, patient should take the new medications listed below (scripts provided). 1. Please make an appointment and follow up with your Primary Doctor in the [facility] you attend, within one week of discharge. This doctor can profide you with a referral for 1. Nephrology; 2. Podiatry; 3. Pulmonology. Also, please discontinue your home med Allopurinol until you discuss alternatives with your PMD. 2. Please make an appointment and follow up with a Lpn Cma regarding our CT finding of Medullary sponge disease. 3. Please make an appointment and follow up with a Chemical Inspector/Oncologist (Dr. Mcdaniel) to follow up on possible excisional lymph node biopsy (once antibiotic treatment is complete). 4. Please make an appointment and follow up with a Commercial Counsel regarding Multiple pulmonary nodules, some ground-glass. Largest ground-glass nodule 6 mm. Followup noncontrast chest CT 3 months is advised as per Fleischner society criteria. Patient should return to ED immediately if symptoms return or worsen. Instructions discussed with patient who understood and agreed. Newly prescribed medications: Ammonum Lactate 12% - apply to your lower extremities - daily. Glipizide 2.5 mg PO daily (take 1/2 of a 5mg tab daily, for a total of 2.5mg) Bactrim DS 1 tab PO BID x 5days Norvasc 5mg PO daily #30
== END 2016-11-30 18:10 | disposition home or self-care (01) ==
LOC: C.ER 00:30 → C.6T 04:30 → C.5T 11-30 11:06
PROVIDERS: ADMIT Internal Medicine; ATTEND Internal Medicine
DX: E11.628 Type 2 diabetes mellitus with other skin complications (principal); L03.115 Cellulitis of right lower limb; I95.9 Hypotension, unspecified; R16.1 Splenomegaly, not elsewhere classified; L03.116 Cellulitis of left lower limb; I87.2 Venous insufficiency (chronic) (peripheral); D64.9 Anemia, unspecified; R59.0 Localized enlarged lymph nodes; D72.829 Elevated white blood cell count, unspecified; E87.6 Hypokalemia; M19.90 Unspecified osteoarthritis, unspecified site; G47.30 Sleep apnea, unspecified; K40.90 Unilateral inguinal hernia, without obstruction or gangrene, not specified as recurrent; Z59.0 Homelessness; Z79.4 Long term (current) use of insulin; Z88.1 Allergy status to other antibiotic agents

== ENCOUNTER 2017-09-04 11:28 | Emergency (ER) | payer SELFPAY ==
[2017-09-04 11:35] VITALS: RESP 18
--- NOTE | 2017-09-04 12:39 | C.PDOC ---
History Of Present Illness 61 y/o male with PMHx of HTN and DM, homelessness presents to ED with complaints of right leg ulcer. pt has had wound "For a while' associated with wound to right lower leg. Patient is speaking in full sentences, but reports subjective dyspnea. pt sleeping, in er in nad, requesting to shower in er. pt denies fever, chills, nubmness, weakness, chest pain or any other complaints at this time. Time Seen by Provider: 09/04/17 12:24 Chief Complaint (Nursing): Shortness Of Breath History Per: Patient History/Exam Limitations: no limitations Onset/Duration Of Symptoms: Days Current Symptoms Are (Timing): Still Present Past Medical History Reviewed: Historical Data, Nursing Documentation, Vital Signs Vital Signs: Last Vital Signs Temp 97.4 F L 09/04/17 11:34 Pulse 97 H 09/04/17 11:34 Resp 18 09/04/17 13:04 BP 122/77 09/04/17 11:34 Pulse Ox 99 09/04/17 16:45 - Medical History PMH: Arthritis, Diabetes, HTN Surgical History: No Surg Hx Family History: States: No Known Family Hx - Social History Hx Alcohol Use: No Hx Substance Use: No - Immunization History Hx Tetanus Toxoid Vaccination: No Hx Influenza Vaccination: Yes Hx Pneumococcal Vaccination: Yes Review Of Systems Constitutional: Negative for: Fever, Chills Cardiovascular: Negative for: Chest Pain Respiratory: Positive for: Shortness of Breath. Negative for: Cough Gastrointestinal: Negative for: Nausea, Vomiting Musculoskeletal: Positive for: Leg Pain Skin: Negative for: Rash Neurological: Negative for: Weakness, Numbness Physical Exam - Physical Exam Appears: Non-toxic, No Acute Distress Skin: Warm, Dry, No Rash Head: Atraumatic, Normacephalic Eye(s): bilateral: Normal Inspection Oral Mucosa: Moist Neck: Normal ROM, Supple Cardiovascular: Rhythm Regular Respiratory: Decreased Breath Sounds (at bases bilaterally), No Rales, No Rhonchi, No Wheezing Gastrointestinal/Abdominal: Soft, No Tenderness, No Guarding, No Rebound Back: No CVA Tenderness Extremity: Normal ROM, Other (2cm ulcer to right lower leg. no erythema and discharge) Pulses: Left Dorsalis Pedis: Normal, Right Dorsalis Pedis: Normal Neurological/Psych: Oriented x3, Normal Motor, Normal Sensation ED Course And Treatment - Laboratory Results Result Diagrams: 09/04/17 12:50 09/04/17 12:50 O2 Sat by Pulse Oximetry: 99 (RA) Pulse Ox Interpretation: Normal Medical Decision Making Medical Decision Making: r/o chf, dvt, pe. labs imaging pending 445: pt sleeping in nad. leg with small ulcer, no purlent d/c, no drainage. no e /o of acute infection. noted previous reports with chronic swelling documented. Disposition - Disposition Disposition: HOME/ ROUTINE Disposition Time: 16:57 Condition: STABLE Additional Instructions: return to er with worsening symptoms or concerns. follow up with your doctor/ clinic. Instructions: Stasis Dermatitis (ED), Leg Edema (ED), Dyspnea (ED) Forms: WebNotes (Belizean) - Clinical Impression Clinical Impression: Leg ulcer - Scribe Statement The provider has reviewed the documentation as recorded by the Bernadetteibzaire [place] All medical record entries made by the Bernadetteibzaire were at my direction and personally dictated by me. I have reviewed the chart and agree that the record accurately reflects my personal performance of the history, physical exam, medical decision making, and the department course for this patient. I have also personally directed, reviewed, and agree with the discharge instructions and disposition.
[2017-09-04 12:55] LABS: BASO # 0.1 K/uL (0.0-0.2); EOS # 0.3 K/uL (0.0-0.7); EOS % 3.8 % (0.0-4.0); HEMOGLOBIN 12.2 g/dL (12.0-18.0); LYMPH # 1.4 K/uL (1.0-4.3); LYMPH % 18.6 % (20.0-40.0); MEAN CELL VOLUME 81.3 fL (80.0-94.0); MEAN CORPUSCULAR HEMOGLOBIN 27.6 pg (27.0-31.0); MEAN PLATELET VOLUME 7.7 fL (7.2-11.7); MONO # 0.4 K/uL (0.0-0.8); MONO % 5.8 % (0.0-10.0); NEUT # 5.2 K/uL (1.8-7.0); NEUT % 70.8 % (50.0-75.0); RBC 4.42 Mil/uL (4.40-5.90); RED CELL DISTRIBUTION WIDTH 14.3 % (11.5-14.5); WHITE BLOOD COUNT 7.3 K/uL (4.8-10.8)
[2017-09-04 13:10] LABS: PROTHROMBIN TIME 11.6 SECONDS (9.7-12.2)
[2017-09-04 13:18] LABS: ALBUMIN 3.7 g/dL (3.5-5.0); ALT/SGPT 31 U/L (21-72); AST/SGOT 21 U/L (17-59); BLOOD UREA NITROGEN 23 mg/dL (9-20); GFR AFRICAN-AMERICAN 54; GFR NON-AFRICAN AMERICAN 44
[2017-09-04 13:27] LABS: B-TYPE NATRIURETIC PEPTIDE 35.4 pg/mL (0-900)
--- NOTE | 2017-09-04 15:22 | RAD ---
HISTORY: chest pain COMPARISON: Chest x-ray performed 11/25/16 TECHNIQUE: Chest, one view. FINDINGS: Examination limited by habitus. LUNGS: Mild interstitial prominence may reflect infection or edema. No focal consolidation. Please note that chest x-ray has limited sensitivity for the detection of pulmonary masses. PLEURA: No significant pleural effusion identified. No definite pneumothorax . CARDIOVASCULAR: Borderline cardiomegaly. OSSEOUS STRUCTURES: Degenerative changes. VISUALIZED UPPER ABDOMEN: Unremarkable. OTHER FINDINGS: None. IMPRESSION: Mild interstitial prominence may reflect infection or edema. Correlate clinically. Borderline cardiomegaly.
--- NOTE | 2017-09-04 15:24 | VASCLAB ---
PROCEDURE: Lower Extremity Venous Duplex Exam. HISTORY: Pain / Swelling PRIORS: None. TECHNIQUE: Bilateral common femoral, femoral, popliteal and posterior tibial, peroneal and great saphenous veins were evaluated. Flow was assessed with color Doppler, compressibility, assessment of phasic flow and augmentation response. Report prepared by Daniel Farr, ROSALIO, RVT FINDINGS: RIGHT: 1. Common Femoral Vein: 1.1. Compressibility - Fully compressible: Thrombus - None : Flow - Phasic: Augmentation -Normal: Reflux - None. 2. Femoral Vein: 2.1. Compressibility - Fully compressible: Thrombus - None : Flow - Phasic: Augmentation -Normal: Reflux - None. 3. Popliteal Vein: 3.1. Compressibility - Fully compressible: Thrombus - None : Flow - Phasic: Augmentation -Normal: Reflux - None. 4. Posterior Tibial Vein: 4.1. Compressibility - : Thrombus - : Flow - : Augmentation -: Reflux - . 5. Peroneal Vein: 5.1. Compressibility - : Thrombus - : Flow - : Augmentation -: Reflux - . 6. Great Saphenous Vein: 6.1. Compressibility - Fully compressible: Thrombus - None: Flow - Phasic: Augmentation - Normal: Reflux - None. LEFT: 1. Common Femoral Vein: 1.1. Compressibility - Fully compressible: Thrombus - None: Flow - Phasic: Augmentation -Normal: Reflux - None. 2. Femoral Vein: 2.1. Compressibility - Fully compressible: Thrombus - None: Flow - Phasic: Augmentation -Normal: Reflux - None. 3. Popliteal Vein: 3.1. Compressibility - Fully compressible: Thrombus - None : Flow - Phasic: Augmentation -Normal: Reflux - None. 4. Posterior Tibial Vein: 4.1. Compressibility - : Thrombus - : Flow - : Augmentation -: Reflux - . 5. Peroneal Vein: 5.1. Compressibility - : Thrombus - : Flow - : Augmentation -: Reflux - . 6. Great Saphenous Vein: 6.1. Compressibility - Fully compressible: Thrombus - None: Flow - Phasic: Augmentation - Normal: Reflux - None. OTHER FINDINGS: Due to swelling in the calves, bilateral peroneal and posterior tibial vein are not visualized. IMPRESSION: Right: No evidence of deep or superficial vein thrombosis of the right lower extremity. Normal valve function noted of the right side. Left: No evidence of deep or superficial vein thrombosis of the left lower extremity. Normal valve function noted of the left side.
[2017-09-04 16:18] LABS: SQUAMOUS EPITHIAL < 1 /hpf (0-5); URINE BILIRUBIN NEGATIVE (NEGATIVE); URINE BLOOD 1+ (NEGATIVE); URINE CLARITY Clear (Clear); URINE COLOR Yellow (YELLOW); URINE GLUCOSE (UA) 3+ mg/dL (Normal); URINE LEUKOCYTE ESTERASE NEG Leu/uL (Negative); URINE NITRATE NEGATIVE (NEGATIVE); URINE PROTEIN NEGATIVE (NEGATIVE); URINE UROBILINOGEN NORMAL mg/dL (0.2-1.0)
--- NOTE | 2017-09-04 16:24 | NM ---
COMPARISON: . Single-view chest. . Bilateral lower extremity duplex venous sonography TECHNIQUE: 6.9 mCi technetium 99-m Xe-133 Gas. Per free 0.4 mCI technetium 99-m MAA administered intravenously. FINDINGS: VENTILATION COMPONENT: Normal. PERFUSION COMPONENT: Heterogeneous distribution of radionuclide. No geographic, segmental, lobar abnormalities apparent on the present examination. IMPRESSION: Low probability ventilation perfusion scan for pulmonary embolism.
--- NOTE | 2017-09-04 16:55 | RAD ---
PROCEDURE: Radiographs of the right tibia and fibula. HISTORY: leg ulcer COMPARISON: None available. TECHNIQUE: Frontal and lateral views obtained. FINDINGS: BONES: No fracture or destructive lesion. JOINT SPACES: Unremarkable. OTHER FINDINGS: Diffuse soft tissue swelling, edema of visualize right lower extremity IMPRESSION: Soft tissue swelling without acute articular or osseous abnormality.
[2017-09-04] MEDS ORDERED: Bacitracin 500 Units/gm Oint Foilpak UD ONE (17:09)
[2017-09-04 17:14] VITALS: BP 159/81; PULSE 98; TEMP 97.5; O2SAT 97
[2017-09-04] MEDS: Bacitracin 500 Units/gm Oint Foilpak UD TOP ONE (17:14)
== END 2017-09-04 17:55 | disposition home or self-care (01) ==
LOC: C.ER 11:28
DX: L97.819 Non-pressure chronic ulcer of other part of right lower leg with unspecified severity (principal); Z59.0 Homelessness
CPT/HCPCS: 71045; 73590; 78582; 80053; 81001; 82948; 83880; 84484; 85025; 85378; 85610; 85730; 93970; 99285; A9558